=== PATIENT | male | born 1940 | race Caucasian/White ===

== ENCOUNTER → 2017-10-14 | Outpatient (CLI) | payer MEDICARE ==
--- NOTE | 2017-10-14 13:34 | MR ---
EXAMINATION TYPE: MR brain and iac wo con DATE OF EXAM: 10/14/2017 COMPARISON: NONE HISTORY: Dizziness and giddiness, Hit head around xmas symptoms getting worse CONTRAST: Performed utilizing 0 mL intravenous Gadavist gadolinium contrast. GFR is too low TECHNIQUE: Multiplanar, multiecho imaging on a 3.0 Yazmin magnet is performed through the brain. Atte ntion is paid to the internal auditory canals with thin section imaging. Postcontrast imaging is per formed through the internal auditory canals. FINDINGS:Craniovertebral junction is normal. The pituitary is normal. Diffusion-weighted imaging is performed. No suspicious hyperintensity is present to suggest an acute intracranial infarct or acute ischemic area. Signal within the brain has mild partially confluent white matter changes in the periventricular whit e matter. There is some subcortical white matter change in the right occipital lobe could be a prior subcortical infarct or microvascular ischemic change. Thin section imaging is performed through the internal auditory canals and cerebellar pontine angles. No cerebellar pontine angle masses are evident. The internal auditory canals appear normal without expansion or erosion. Minimal mucosal thickening is within the maxillary sinuses. Minimal mucosal thickenings within the mi d scattered ethmoid air cells. IMPRESSIONS: 1. Normal internal auditory canals. 2. Small intracanalicular schwannomas may not be visualized due to lack of intravenous contrast due t o the patient's renal function at this time. 3. Periventricular white matter ischemic changes. This more focal into the right occipital lobe.
== END | disposition home or self-care (01) ==
LOC: RADMRIMAIN 10:53
PROVIDERS: ATTEND Nurse Practitioner
DX: I67.82 Cerebral ischemia (principal); Z01.812 Encounter for preprocedural laboratory examination
CPT/HCPCS: 70551; 82565; 84520

== ENCOUNTER 2018-01-03 11:23 | Day surgery (SDC) | payer MEDICARE ==
[~2018-01-03 11:23] MED LIST: GENTAMICIN/PREDNISOL AC OPHTH OINT 3.5GM OPHTHALMIC ONE; LACTATED RINGERS 1,000 ML IV SCH; LIDOCAINE 1% 20 ML VIAL (10MG/ML) FOR IV START INTRADERMA PRN; Pre Op ABX Message 1 EACH MISC MISCELLANE ONE; TOBRA-DEXAMET 0.3-0.1% OPHTH DROPS 2.5 ML BTL OPHTHALMIC ONE; diphenhydrAMINE 50 MG/ML 1 ML VIAL IVP STA
[2018-01-03 12:45] VITALS: RESP 16; TEMP 98.1
[2018-01-03] MEDS: PHENYLEPHRINE 10% OPHTH DROPS 5 ML BTL OP ONE ×3 (12:51→13:07)
[2018-01-03] MEDS: CYCLOPENTOLATE 1% OPHTH SOLN 2 ML BTL OP ONE ×3 (12:54→13:09)
[2018-01-03] MEDS: FLURBIPROFEN 0.03% OPHTH DROPS 2.5 ML BTL OP ONE ×2 (13:13→13:15)
[2018-01-03 13:21] LABS: Glucose,Whole Blood 130 mg/dL (75-99)
[2018-01-03] MEDS ORDERED: PROPOFOL 10 MG/ML 20 ML VIAL IV ONE (13:30)
[2018-01-03] MEDS ORDERED: LIDOCAINE 1% INJ 10MG/ML (20 ML MDV) ONE (13:30)
[2018-01-03] MEDS ORDERED: EPINEPHrine (PF) 0.5 ML in BALANCED SALT IRRIG SOLN COMB2 500 ML IRRIGATION ONE (13:42)
[2018-01-03] MEDS ORDERED: BALANCED SALT IRRIG SOLN COMB2 15 ML IRRIG.SOLN INTRAOCULA ONE (13:44)
[2018-01-03] MEDS ORDERED: HYALURONATE SODIUM INTRAOCULAR 1 EACH SYRINGE (10MG/ML) INTRAOCULA ONE (13:44)
--- NOTE | 2018-01-03 14:12 | P.OP ---
Date of Procedure: 01/03/18 Procedure(s) Performed: PREOPERATIVE DIAGNOSIS: Cataract, right eye, Glaucoma, right eye. POSTOPERATIVE DIAGNOSIS: Cataract, right eye. Glaucoma, right eye. OPERATION: Phacoemulsification cataract, Lens Implant, I-stent placement right eye. DESCRIPTION OF PROCEDURE: The patient was taken to the preoperative holding area. Intravenous Propofol was given so as to bring about adequate sedation. The following mixture was given for local anesthesia: 5 mL of 2% lidocaine, 5 mL of 0.75% Marcaine, and 1 mL of Wydase. Approximately 4 mL was injected in the retrobulbar space of the surgical eye. Additional 1 mL was then directed to the temporal area of the surgical eye. This was performed to allow adequate neurological block of the facial muscles. The patient was revived and then taken into the operative room. The patient was prepped and draped in the usual sterile manner for the operative eye. A lid speculum was put into position. The conjunctiva was resected back from the limbus in the 12 o'clock position. Bleeding was controlled with electrocautery. A #69 blade was then used and a half-thickness scleral incision approximately 1-mm posterior to the limbus was made on bare sclera. This was shelved in the clear cornea using a crescent knife. Next a 15-degree blade was used to make a stab incision at the 3 o' clock position at the corneolimbal interface. Keratome blade was then used and the superior wound was extended into the anterior chamber. Viscoelastic was injected into the anterior chamber and to maintain its form. Using a hand held gonioprism, an I-stent was placed into the inferior trabecular meshwork. Next, a cystotome was used and a continuous anterior capsulotomy was made without difficulty. Hydrodissection using a blunt cannula and BSS was performed. Phaco probe was then employed and a groove extending from 12 to 6 o' clock in the lens was created. A Demarcus wand was used through the stab incision so as to perform a divide and conquer technique. Next an irrigation aspiration probe was utilized and any residual cortex was removed from the eye. Again, viscoelastic was injected into the anterior chamber. An Alconj posterior chamber lens implant was placed in the cartridge and injected into the anterior chamber without difficulty. The [employer] hook was utilized to spin the lens into position and this was again performed without any difficulty. The irrigation and aspiration probe was again employed and any residual viscoelastic was removed from the eye. Then BSS was injected into the limbal stab incision and the anterior chamber re-inflated. The conjunctiva was reapproximated using electrocautery. One drop of 0.25% Timoptic was placed over the corneal along with TobraDex ophthalmic ointment. Two sterile patches and a Muir eye shield were taped into position. The patient was transported to the recovery room in stable condition. Pathology: none sent Condition: stable Disposition: same day
[2018-01-03 14:28] LABS: Glucose,Whole Blood 119 mg/dL (75-99)
[2018-01-03 14:31] VITALS: BP 160/81; PULSE 61
[2018-01-03] MEDS ORDERED: TIMOLOL 0.5% OPHTH DROPS 5 ML BTL OP ONE (23:00)
[2018-01-03] MEDS ORDERED: BUPIVACAINE (PF) 0.75% 5 ML, HYALURONIDASE, HUMAN RECOMB 150 UNIT, LIDOCAINE 2% (PF) 10... MISCELLANE ONE ×3 (23:00)
== END 2018-01-03 14:41 | disposition home or self-care (01) ==
LOC: OR 11:23
PROVIDERS: ATTEND Ophthalmology
DX: E11.36 Type 2 diabetes mellitus with diabetic cataract (principal); H04.129 Dry eye syndrome of unspecified lacrimal gland; I10 Essential (primary) hypertension; Z79.84 Long term (current) use of oral hypoglycemic drugs; Z79.899 Other long term (current) drug therapy; E78.5 Hyperlipidemia, unspecified; Z85.46 Personal history of malignant neoplasm of prostate; K21.9 Gastro-esophageal reflux disease without esophagitis; Z79.82 Long term (current) use of aspirin; Z88.6 Allergy status to analgesic agent; Z88.8 Allergy status to other drugs, medicaments and biological substances
CPT/HCPCS: 66984; 66183; V2632; C1783; J3470; J1200; J2001 ×2; J0171; J2704

== ENCOUNTER 2018-02-07 07:29 | Day surgery (SDC) | payer MEDICARE ==
[2018-01-31 13:57] VITALS: BMI 30.7
[~2018-02-07 07:29] MED LIST changes: +BUPIVACAINE (PF) 0.75% 5 ML, HYALURONIDASE, HUMAN RECOMB 150 UNIT, LIDOCAINE 2% (PF) 10... MISCELLANE ONE; -LIDOCAINE 1% 20 ML VIAL (10MG/ML) FOR IV START INTRADERMA PRN; -Pre Op ABX Message 1 EACH MISC MISCELLANE ONE; +TIMOLOL 0.5% OPHTH DROPS 5 ML BTL OP ONE; -TOBRA-DEXAMET 0.3-0.1% OPHTH DROPS 2.5 ML BTL OPHTHALMIC ONE; -diphenhydrAMINE 50 MG/ML 1 ML VIAL IVP STA
[2018-02-07] MEDS ORDERED: diphenhydrAMINE 50 MG/ML 1 ML VIAL IVP STA (08:48)
[2018-02-07] MEDS: PHENYLEPHRINE 10% OPHTH DROPS 5 ML BTL OP ONE ×4 (08:55→09:21)
[2018-02-07] MEDS: CYCLOPENTOLATE 1% OPHTH SOLN 2 ML BTL OP ONE ×4 (08:58→09:21)
[2018-02-07] MEDS: FLURBIPROFEN 0.03% OPHTH DROPS 2.5 ML BTL OP SCH ×4 (09:01→09:21)
[2018-02-07 09:17] VITALS: TEMP 97.6
[2018-02-07 09:25] LABS: Glucose,Whole Blood 156 mg/dL (75-99)
[2018-02-07] MEDS ORDERED: PROPOFOL 10 MG/ML 20 ML VIAL IV ONE (09:38)
[2018-02-07] MEDS ORDERED: BALANCED SALT IRRIG SOLN COMB2 15 ML IRRIG.SOLN IRRIGATION ONE (09:50)
[2018-02-07] MEDS ORDERED: HYALURONATE SODIUM INTRAOCULAR 1 EACH SYRINGE (10MG/ML) INTRAOCULA ONE ×2 (09:50)
[2018-02-07] MEDS ORDERED: EPINEPHrine (PF) 0.5 ML in BALANCED SALT IRRIG SOLN COMB2 500 ML IRRIGATION ONE (09:52)
--- NOTE | 2018-02-07 10:16 | P.OP ---
Date of Procedure: 02/07/18 Procedure(s) Performed: PREOPERATIVE DIAGNOSIS: Cataract and Glaucoma, left eye. POSTOPERATIVE DIAGNOSIS: Cataract and Glaucoma, left eye. OPERATION: Phacoemulsification cataract, placement of iStent, left eye. DESCRIPTION OF PROCEDURE: The patient was taken to the preoperative holding area. Intravenous Propofol was given so as to bring about adequate sedation. The following mixture was given for local anesthesia: 5 mL of 2% lidocaine, 5 mL of 0.75% Marcaine, and 1 mL of Wydase. Approximately 4 mL was injected in the retrobulbar space of the surgical eye. Additional 1 mL was then directed to the temporal area of the surgical eye. This was performed to allow adequate neurological block of the facial muscles. The patient was revived and then taken into the operative room. The patient was prepped and draped in the usual sterile manner for the operative eye. A lid speculum was put into position. The conjunctiva was resected back from the limbus in the 12 o'clock position. Bleeding was controlled with electrocautery. A #69 blade was then used and a half-thickness scleral incision approximately 1-mm posterior to the limbus was made on bare sclera. This was shelved in the clear cornea using a crescent knife. Next a 15-degree blade was used to make a stab incision at the 3 o' clock position at the corneolimbal interface. Keratome blade was then used and the superior wound was extended into the anterior chamber. Viscoelastic was injected into the anterior chamber and to maintain its form. An iStent was placed in the inferior trabecular meshwork. Next, a cystotome was used and a continuous anterior capsulotomy was made without difficulty. Hydrodissection using a blunt cannula and BSS was performed. Phaco probe was then employed and a groove extending from 12 to 6 o'clock in the lens was created. A Demarcus wand was used through the stab incision so as to perform a divide and conquer technique. Next an irrigation aspiration probe was utilized and any residual cortex was removed from the eye. Again, viscoelastic was injected into the anterior chamber. An Primitivo posterior chamber lens implant was placed in the cartridge and injected into the anterior chamber without difficulty. The Sinskey hook was utilized to spin the lens into position and this was again performed without any difficulty. The irrigation and aspiration probe was again employed and any residual viscoelastic was removed from the eye. Then BSS was injected into the limbal stab incision and the anterior chamber re- inflated. The conjunctiva was reapproximated using electrocautery. One drop of 0.25% Timoptic was placed over the corneal along with TobraDex ophthalmic ointment. Two sterile patches and a Muir eye shield were taped into position. The patient was transported to the recovery room in stable condition. Pathology: none sent Condition: stable Disposition: same day
[2018-02-07 10:19] VITALS: BP 182/88; PULSE 60; RESP 18
[2018-02-07 10:28] LABS: Glucose,Whole Blood 138 mg/dL (75-99)
== END 2018-02-07 10:58 | disposition home or self-care (01) ==
LOC: OR 07:29
PROVIDERS: ATTEND Ophthalmology
DX: E11.36 Type 2 diabetes mellitus with diabetic cataract (principal); H40.1132 Primary open-angle glaucoma, bilateral, moderate stage; Z79.84 Long term (current) use of oral hypoglycemic drugs; H04.129 Dry eye syndrome of unspecified lacrimal gland; I10 Essential (primary) hypertension; E78.5 Hyperlipidemia, unspecified; Z87.442 Personal history of urinary calculi; K21.9 Gastro-esophageal reflux disease without esophagitis; Z79.82 Long term (current) use of aspirin; Z79.899 Other long term (current) drug therapy
CPT/HCPCS: 66984; 66183; V2632; C1783; J3470; J1200; J2001; J0171; J2704

== ENCOUNTER → 2018-06-10 | Outpatient (CLI) | payer MEDICARE ==
--- NOTE | 2018-06-12 09:32 | PE ---
Nuclear medicine PET/CT HISTORY: Solitary pulmonary nodule, initial Patient received 12 mCi F-18 FDG intravenously in delayed scanning was performed from skull base to t he mid thighs. An attenuation correction and localization CT was performed. Correlation CT abdomen pelvis 05/12/[address] 03/17/2016, most recent chest x-ray available is 03/23/20 16 Neck and chest: There is no evident cervical adenopathy. Calcifications along the pharyngeal soft tis sues compatible with chronic infection. Shotty mediastinal nodes are present, there is an aorticopulm onary window node measuring 12 mm in short axis. Coronary artery calcifications are present. No pleur al or pericardial effusion. No axillary or hilar adenopathy. Pulmonary nodule present in the right mi ddle lobe measures approximately 10 mm in greatest dimension. There is no associated hypermetabolic u ptake. Nodule is stable over two-year period. Abdomen pelvis: No suspicious hypermetabolic uptake. No evident retroperitoneal adenopathy or adrenal mass. Liver shows no lesion. Gallbladder, spleen, kidneys are within normal limits. Pancreas shows n o abnormality. Atheromatous change present within the aorta. Urinary bladder shows wall thickening. S treak artifact from patient's hip prosthesis could limit sensitivity. No evident pelvic adenopathy. Osseous structures: There are degenerative changes within the spine. Facet arthropathy noted at the l ower lumbar spine, there may be a component of spinal stenosis. Mild uptake within the shoulders is l ikely due to underlying arthropathy. Uptake in the greater trochanter on the right may be due to troc hanteric bursitis, is likely inflammatory change in the right hip possibly arthropathy change with as sociated uptake. IMPRESSION: Benign lung nodule.
== END | disposition home or self-care (01) ==
LOC: RADPETMAIN 08:25
PROVIDERS: ATTEND Family Medicine
DX: R91.1 Solitary pulmonary nodule (principal)
CPT/HCPCS: 78815; A9552

== ENCOUNTER → 2018-09-29 | Outpatient (CLI) | payer MEDICARE | END | disposition home or self-care (01) | LOC: RADCTMAIN 16:08 | PROVIDERS: ATTEND Internal Medicine Interventional Cardiology | DX: I65.29 Occlusion and stenosis of unspecified carotid artery (principal) | CPT/HCPCS: 82565; 84520 ==

== ENCOUNTER 2021-04-24 09:43 | Inpatient (IN) | payer MEDICARE ==
[2021-04-24] MEDS ORDERED: SODIUM CHLORIDE 0.9% 500 ML 500 ML IV ONE (09:58)
--- NOTE | 2021-04-24 09:59 | ED ---
General Adult HPI - General Stated complaint: stroke symptoms Source: patient, RN notes reviewed, old records reviewed Mode of arrival: ambulatory Limitations: no limitations - History of Present Illness Initial comments: 80-year-old male presenting for evaluation of left arm numbness and weakness. Symptoms began yesterday at noon. He is presenting today at approximately 9:45 AM. Patient is on aspirin. He states he had been doing some yard work and developed the numbness and weakness in his left arm. EMS reported stable vitals during transport. They state that there was no facial droop and speech was clear. No lower extremity symptoms. No chest pain or abdominal pain. No headache. - Related Data Home Medications Medication Instructions Recorded Confirmed Metoprolol Tartrate [Lopressor] 25 mg PO BID 03/17/16 04/24/21 sitaGLIPtin [Januvia] 50 mg PO DAILY 12/28/17 04/24/21 amLODIPine [Norvasc] 5 mg PO DAILY 01/31/18 04/24/21 Atorvastatin [Lipitor] 80 mg PO DAILY 04/24/21 04/24/21 Tamsulosin [Flomax] 0.4 mg PO DAILY 04/24/21 04/24/21 Allergies Allergy/AdvReac Type Severity Reaction Status Date / Time cortisone Allergy Anaphylaxis Verified 04/24/21 10:47 NSAIDS (Non-Steroidal Allergy Anaphylaxis Verified 04/24/21 10:47 Anti-Inflamma Review of Systems ROS Statement: Those systems with pertinent positive or pertinent negative responses have been documented in the HPI. ROS Other: All systems not noted in ROS Statement are negative. Past Medical History Past Medical History: Cancer, Diabetes Mellitus, GERD/Reflux, Hyperlipidemia, Hypertension, Osteoarthritis (OA), Prostate Disorder Additional Past Medical History / Comment(s): NIDDM, prostate cancer with prostatectomy, generalized arthritis LOSS OF VISON RT EYE, kidney stones, Cataract left eye. History of Any Multi-Drug Resistant Organisms: None Reported Past Surgical History: Joint Replacement, Prostate Surgery Additional Past Surgical History / Comment(s): Suprapubic prostatectomy with cystoscopy, total L hip arthroplasty, colonoscopy., Right Cataract 01/03/18 Past Anesthesia/Blood Transfusion Reactions: No Reported Reaction Past Psychological History: No Psychological Hx Reported Smoking Status: Never smoker Past Alcohol Use History: Rare Past Drug Use History: None Reported - Past Family History Father Family Medical History: Prostate Disorder Additional Family Medical History / Comment(s): Father at age 86 yrs. Mother Family Medical History: Cancer Additional Family Medical History / Comment(s): Mother of uterine cancer at the age of 52 yrs. General Exam Limitations: no limitations General appearance: alert, in no apparent distress Head exam: Present: atraumatic, normocephalic Eye exam: Present: normal appearance, PERRL Neck exam: Present: normal inspection. Absent: tenderness, meningismus Respiratory exam: Present: normal lung sounds bilaterally. Absent: respiratory distress, wheezes Cardiovascular Exam: Present: regular rate, normal rhythm GI/Abdominal exam: Present: soft. Absent: distended, tenderness, guarding, rebound Extremities exam: Present: normal capillary refill, other (Left hand contracture) Neurological exam: Present: alert, oriented X3, CN II-XII intact, motor sensory deficit (Left arm drift) Psychiatric exam: Present: normal affect, normal mood Skin exam: Present: warm, dry, intact. Absent: cyanosis, diaphoretic Course Vital Signs 04/24/21 04/24/21 04/24/21 09:47 10:30 10:45 Temperature 97.4 F L Pulse Rate 79 74 80 Respiratory 18 18 18 Rate Blood Pressure 143/74 133/78 147/87 O2 Sat by Pulse 98 95 97 Oximetry EKG Findings - EKG Comments: EKG Findings:: Sinus rhythm with PAC, PVC rate of 78, KS interval 192, QRS duration 86, QTC 428, no ST segment elevation. Medical Decision Making - Medical Decision Making 80-year-old male with history concerning for acute CVA, left-sided weakness whic h began yesterday at noon. Patient not a TPA candidate. I did discuss case with Dr. Valentin bradford for stroke neurology at 10 AM. He was able to review imaging. Plain CT did show possible subacute hypodensity in the right frontal region. CT angiography have concern for a dissection which may be chronic in the carotid artery. Dr. Hanson did recommend 300 of Plavix to be administered. I discussed case with Dr. Crispin bradford for neurology who recommends stat MRI this has been ordered. Patient is hemodynamically stable, alert. Case discussed with Dr. De La Garza who will admit. - Lab Data Result diagrams: 04/24/21 10:03 04/24/21 10:03 Lab Results 04/24/21 04/24/21 04/24/21 Range/Units 10:02 10:03 10:03 WBC 8.4 (3.8-10.6) k/uL RBC 4.64 (4.30-5.90) m/uL Hgb 14.6 (13.0-17.5) gm/dL Hct 44.0 (39.0-53.0) % MCV 94.8 (80.0-100.0) fL MCH 31.5 (25.0-35.0) pg MCHC 33.2 (31.0-37.0) g/dL RDW 13.6 (11.5-15.5) % Plt Count 218 (150-450) k/uL MPV 8.5 Neutrophils % 72 % Lymphocytes % 15 % Monocytes % 7 % Eosinophils % 5 % Basophils % 1 % Neutrophils # 6.1 (1.3-7.7) k/uL Lymphocytes # 1.2 (1.0-4.8) k/uL Monocytes # 0.6 (0-1.0) k/uL Eosinophils # 0.4 (0-0.7) k/uL Basophils # 0.1 (0-0.2) k/uL PT 10.5 (9.0-12.0) sec INR 1.0 (<1.2) APTT 22.2 (22.0-30.0) sec Sodium (137-145) mmol/L Potassium (3.5-5.1) mmol/L Chloride (98-107) mmol/L Carbon Dioxide (22-30) mmol/L Anion Gap mmol/L BUN (9-20) mg/dL Creatinine (0.66-1.25) mg/dL Est GFR (CKD-EPI)AfAm (>60 ml/min/1.73 sqM) Est GFR (CKD-EPI)NonAf (>60 ml/min/1.73 sqM) Glucose (74-99) mg/dL POC Glucose (mg/dL) 142 H (75-99) mg/dL POC Glu [employer]earoom Host/Hostess ID Venus Garcia Calcium (8.4-10.2) mg/dL Total Bilirubin (0.2-1.3) mg/dL AST (17-59) U/L ALT (4-49) U/L Alkaline Phosphatase (38-126) U/L Troponin I (0.000-0.034) ng/mL Total Protein (6.3-8.2) g/dL Albumin (3.5-5.0) g/dL 04/24/21 04/24/21 Range/Units 10:03 10:03 WBC (3.8-10.6) k/uL RBC (4.30-5.90) m/uL Hgb (13.0-17.5) gm/dL Hct (39.0-53.0) % MCV (80.0-100.0) fL MCH (25.0-35.0) pg MCHC (31.0-37.0) g/dL RDW (11.5-15.5) % Plt Count (150-450) k/uL MPV Neutrophils % % Lymphocytes % % Monocytes % % Eosinophils % % Basophils % % Neutrophils # (1.3-7.7) k/uL Lymphocytes # (1.0-4.8) k/uL Monocytes # (0-1.0) k/uL Eosinophils # (0-0.7) k/uL Basophils # (0-0.2) k/uL PT (9.0-12.0) sec INR (<1.2) APTT (22.0-30.0) sec Sodium 136 L (137-145) mmol/L Potassium 4.9 (3.5-5.1) mmol/L Chloride 107 (98-107) mmol/L Carbon Dioxide 18 L (22-30) mmol/L Anion Gap 11 mmol/L BUN 37 H (9-20) mg/dL Creatinine 1.87 H (0.66-1.25) mg/dL Est GFR (CKD-EPI)AfAm 38 (>60 ml/min/1.73 sqM) Est GFR (CKD-EPI)NonAf 33 (>60 ml/min/1.73 sqM) Glucose 160 H (74-99) mg/dL POC Glucose (mg/dL) (75-99) mg/dL POC Glu Tearoom Host/Hostess ID Calcium 9.4 (8.4-10.2) mg/dL Total Bilirubin 0.8 (0.2-1.3) mg/dL AST 31 (17-59) U/L ALT 27 (4-49) U/L Alkaline Phosphatase 125 (38-126) U/L Troponin I <0.012 (0.000-0.034) ng/mL Total Protein 7.1 (6.3-8.2) g/dL Albumin 4.0 (3.5-5.0) g/dL Disposition Clinical Impression: Cerebrovascular accident (CVA) Disposition: ADMITTED IP TO THIS [facility] Condition: Stable Is patient prescribed a controlled substance at d/c from ED?: No Referrals: Jessica Griffin DO [Primary Care Provider] - 1-2 days Decision to Admit Reason: Admit from EC Decision Date: 04/24/21 Decision Time: 11:31
[2021-04-24 10:06] LABS: Glucose,Whole Blood 142 mg/dL (75-99)
[2021-04-24 10:30] LABS: Basophils # (A) 0.1 k/uL (0-0.2); Basophils % (A) 1 %; Eosinophils # (A) 0.4 k/uL (0-0.7); Eosinophils % (A) 5 %; HGB 14.6 gm/dL (13.0-17.5); Lymphocytes # (A) 1.2 k/uL (1.0-4.8); Lymphocytes % (A) 15 %; MCH 31.5 pg (25.0-35.0); MCHC 33.2 g/dL (31.0-37.0); MCV 94.8 fL (80.0-100.0); Mean Platelet Volume 8.5; Monocytes # (A) 0.6 k/uL (0-1.0); Monocytes % (A) 7 %; Neutrophils # (A) 6.1 k/uL (1.3-7.7); Neutrophils % (A) 72 %; Platelet Count 218 k/uL (150-450); RBC 4.64 m/uL (4.30-5.90); RDW 13.6 % (11.5-15.5); WBC 8.4 k/uL (3.8-10.6)
--- NOTE | 2021-04-24 10:39 | CT ---
EXAMINATION TYPE: CT brain wo con DATE OF EXAM: 04/24/2021 COMPARISON: MRI 10/14/2017 HISTORY: 80-year-old male male neurologic deficit, acute, stroke suspected, Left arm drift. TECHNIQUE: Examination was done in axial plane without intravenous contrast. Coronal and sagittal r econstructions performed. CT DLP: 1077.8 mGycm Automated exposure control for dose reduction was used. FINDINGS: There is cortical and subcortical hypodensity right frontoparietal junction that is new from 10/14/2017 . No significant sulcal effacement. There is no evidence of acute intracranial hemorrhage, mass, mass-effect, or extra-axial fluid colle ction. There is no effacement of cerebral sulci or basal subarachnoid cisterns. There is no hydroce phalus. There is no midline shift. Mild generalized supratentorial volume loss. Moderate patchy white matter hypodensities both cerebral hemispheres. Moderate mucosal thickening ethmoid air cells and maxillary sinuses and mastoid air cells well pneuma tized. Orbits and globes are intact. IMPRESSION: 1. Cortical and subcortical hypodensity at the right frontoparietal junction, new from 10/14/2017. No s ignificant sulcal effacement or midline shift. No acute intracranial hemorrhage. Correlate for possib le subacute ischemia here. 2. Mild generalized atrophy and moderate burden of chronic small vessel ischemic disease. 3. Moderate chronic ethmoid and maxillary sinus disease.
--- NOTE | 2021-04-24 10:40 | XR ---
EXAMINATION TYPE: XR chest 2V DATE OF EXAM: 04/24/2021 COMPARISON: Chest x-ray March 23, 2016 HISTORY: Altered mental status and weakness. TECHNIQUE: Frontal and lateral views of the chest are obtained. FINDINGS: There is mild chronic parenchymal change without suspicious new focal air space opacity, p leural effusion, or pneumothorax seen. Diminish inspiration on current study. The cardiac silhouette size is slightly more prominent. Degenerative change bilateral shoulders. IMPRESSION: Diminished inspiration. No new suspicious focal infiltrate.
[2021-04-24 10:41] LABS: Partial Thromboplastin Time 22.2 sec (22.0-30.0); Prothrombin Time 10.5 sec (9.0-12.0)
[2021-04-24 10:51] LABS: Calcium 9.4 mg/dL (8.4-10.2); Total Bilirubin 0.8 mg/dL (0.2-1.3); Total Protein 7.1 g/dL (6.3-8.2)
[2021-04-24 10:52] LABS: Potassium 4.9 mmol/L (3.5-5.1)
--- NOTE | 2021-04-24 10:59 | CT ---
EXAMINATION TYPE: CT angio head neck DATE OF EXAM: 04/24/2021 COMPARISON: CT brain same day HISTORY: 80-year-old male acute neurologic deficit, Left arm drift. TECHNIQUE: Contiguous axial scanning of the head and neck performed with IV Contrast, patient injecte d with 65 mL of Isovue 370. Coronal/sagittal MIP reconstructions performed. 3-D reconstructions gener ated on a dedicated independent workstation. CT DLP: 416.2 mGycm Automated exposure control for dose reduction was used. 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 Flap is slightly thick suggesting a more chronic finding. There is occlusion of th e left vertebral artery intermittent faint reconstitution is noted throughout the V2 segment. More ad equate reconstitution at the V3 and V4 segments though the right vertebral artery is dominant. Moderate atherosclerotic calcification narrowing the origin of the right vertebral artery. Remainder of the right vertebral artery remains patent. 1.4 cm hypodense nodule left lobe of thyroid gland. Further evaluation with dedicated thyroid ultraso und recommended. Mild to moderate atherosclerotic arch calcifications with conventional arch vessel branching anatomy. The right common carotid artery is patent. Moderate atherosclerotic changes at the right carotid bifurcation. Mild narrowing at the origin of the right ICA secondary to atherosclerotic calcification by less than 20%. Severe plaque in the proximal right ICA resulting in a severe, 80-90% stenosis of the proximal right ICA by NASCET criteria spanning a length of nearly 1 cm. Left common carotid artery is patent. Moderate atherosclerotic plaque and calcification at the proximal left ICA. There is narrowing modera te, just under 70% proximal left ICA stenosis by NASCET criteria. HEAD: Scattered moderate prostatic calcifications throughout the carotid siphons with segmental mild athero sclerotic narrowing bilateral internal carotid arteries. No significant stenosis seen. There is hypoplastic A1 segment right anterior cerebral artery. Otherwise, the anterior circulation i s patent. No aneurysmal change is seen. Dural venous sinuses are patent. IMPRESSION: NECK: 1. 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 THE DISSECTION FLAP APPEARS SLIGHTLY THICK SUGGEST ING A MORE CHRONIC FINDING. 2. MODERATE ATHEROSCLEROTIC NARROWING AT THE ORIGIN OF THE DOMINANT RIGHT VERTEBRAL ARTERY WHICH OTHE RWISE REMAINS PATENT. 3. SEVERE, 80-90% PROXIMAL RIGHT ICA STENOSIS SPANNING A LENGTH OF 1 CM. 4. MODERATE ATHEROSCLEROTIC CHANGE AT THE LEFT BIFURCATION WITH A MODERATE, JUST UNDER 70% PROXIMAL L EFT ICA STENOSIS. 5. A 1.4 CM LEFT THYROID LOBE NODULE CAN BE FURTHER EVALUATED WITH A NONEMERGENT DEDICATED THYROID UL TRASOUND. HEAD: 6. MILD SEGMENTAL ATHEROSCLEROTIC NARROWING THROUGHOUT THE BILATERAL CAROTID SIPHONS. 7. 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 8. NO LARGE VESSEL INTRACRANIAL ARTERIAL OCCLUSION, SIGNIFICANT STENOSIS, OR ANEURYSMAL CHANGE IS SEE N.
[2021-04-24] MEDS ORDERED: CLOPIDOGREL 75 MG TAB PO STA (11:12)
[2021-04-24] MEDS ORDERED: ATORVASTATIN 80 MG TAB PO STA (12:26)
[2021-04-24] MEDS: SODIUM CHLORIDE 0.9% 1,000 ML IV SCH (12:34)
--- NOTE | 2021-04-24 13:35 | P.CNNES ---
History of Present Illness Consult date: 04/24/21 Requesting physician: Wilbur Bernard Reason for Consult: CVA and carotid dissection History of Present Illness: This is a 80-year-old gentleman with medical history of diabetes mellitus (for at least 10-12 years), hypertension, hyperlipidemia, who presented to the emergency department on 04/24/2021 for left arm weakness and numbness that started two days ago. Patient presented at around 9:43 AM today to our ED. He is accompanied by his daughter (Melissa) who is at bedside. Due to that about 2 days ago he was doing gardening and all of a sudden he noted his a left upper extremity mostly to hand the forearm was weak as well as felt numbness. He denies any other associated symptoms with that that. Denies any difficulty swallowing, difficulty getting his words out, denied any weakness in the legs. He stated that he has a mild headache is chronic and that's in the back of the head and stated it was mild and denies any radiation denied any photophobia photophobia and nausea vomiting and he said that he has this headache on and off and that's been going on for a while but denies any headache currently. He denies as seeking any medical attention the with the weakness of the left upper extremity since he thought is given get better. He denies any history of stroke or TIA. He denies any trauma to the neck had. He feels about the same today compared to 2 days ago. He denies of tobacco use, alcohol use or illicit drug use. Patient home medication consists of amlodipine 5 mg, Flomax, metoprolol 25 mg tablet twice a day, Lipitor 80 mg daily and Januvia. Of note per his granddaughter was at bedside she stated that the the patient the has intermittent the slurring the speech that's chronic and nothing new. She stated that he uses a cane and a walker for a long period of time. He also has a right hip pain as well as right knee pain that needs replacement and is pending to be done. Some other workup in the hospital consisted of: Initial vital signs is blood pressure of 143/74, heart rate of 79, RR of 18, temperature of 97.4 Fahrenheit oral and pulse ox of 98% room air. CT of the brain is reported as cortical and subcortical hypodensity at the right frontal parietal junction, new from 10/14/2017. No significant sulcal effacement or midline shift. No acute intracranial hemorrhage. Correlate for possible subacute ischemia. Mild generalized atrophy and moderate burden of chronic small vessel ischemic disease. Moderate chronic ethmoid and maxillary sinus disease. 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 There is reconstitution of the nondominant left vertebral artery at the V3 and V4 segment. The dissection flap appears slightly thick suggesting a more chronic finding. Moderate aphthous carotid narrowing at the origin of the dominant right vertebral artery with otherwise remained patent. Severe 80-90% proximal right ICA stenosis sparing a length of 1 cm. Moderate after sclerotic change at the left bifurcation with a moderate, just under 70% proximal left ICA stenosis. It 1.4 cm left thyroid the lobe nodule can be further evaluated with a nonemergent dedicated thyroid ultrasound. CT angiography of the head is reported as mild segmental aphthous carotid narrowing throughout the bilateral carotid siphons. Reconstruction of the V3 and V4 segment of the nondominant left vertebral artery. No large vessel intracranial arterial occlusion. Significant stenosis or aneurysm changes seen. CBC with differential is unremarkable. Chemistry panel is the sodium is slightly low of 136, creatinine is 1.87 regina vated and a glucose POC is 142 which is slightly elevated otherwise the rest of History panel is unremarkable. Coagulation study: PT of 10.5, INR 1.0, PTT of 22.2. No IV tpa since outside window. The patient was loaded with Plavix 300 mg once per the stroke attending (Dr. Alcocer) and stated no intervention from his side and does not need to be transfered out per ED team. Review of Systems Review of system: The 12 point system was reviewed and apparent positive and negative per HPI. Past Medical History Past Medical History: Cancer, Diabetes Mellitus, GERD/Reflux, Hyperlipidemia, Hypertension, Osteoarthritis (OA), Prostate Disorder Additional Past Medical History / Comment(s): NIDDM, prostate cancer with prostatectomy, generalized arthritis LOSS OF VISON RT EYE, kidney stones, Cataract left eye. History of Any Multi-Drug Resistant Organisms: None Reported Past Surgical History: Joint Replacement, Prostate Surgery Additional Past Surgical History / Comment(s): Suprapubic prostatectomy with cystoscopy, total L hip arthroplasty, colonoscopy., Right Cataract 01/03/18 Past Anesthesia/Blood Transfusion Reactions: No Reported Reaction Past Psychological History: No Psychological Hx Reported Smoking Status: Never smoker Past Alcohol Use History: Rare Past Drug Use History: None Reported - Past Family History Father Family Medical History: Prostate Disorder Additional Family Medical History / Comment(s): Father at age 86 yrs. Mother Family Medical History: Cancer Additional Family Medical History / Comment(s): Mother of uterine cancer at the age of 52 yrs. Medications and Allergies Home Medications Medication Instructions Recorded Confirmed Type Metoprolol Tartrate [Lopressor] 25 mg PO BID 03/17/16 04/24/21 History sitaGLIPtin [Januvia] 50 mg PO DAILY 12/28/17 04/24/21 History amLODIPine [Norvasc] 5 mg PO DAILY 01/31/18 04/24/21 History Atorvastatin [Lipitor] 80 mg PO DAILY 04/24/21 04/24/21 History Tamsulosin [Flomax] 0.4 mg PO DAILY 04/24/21 04/24/21 History Allergies Allergy/AdvReac Type Severity Reaction Status Date / Time cortisone Allergy Anaphylaxis Verified 04/24/21 10:47 NSAIDS (Non-Steroidal Allergy Anaphylaxis Verified 04/24/21 10:47 Anti-Inflamma Physical Examination - Vital Signs Vital Signs: Vital Signs Temp Pulse Resp BP Pulse Ox 04/24/21 10:45 80 18 147/87 97 04/24/21 10:30 74 18 133/78 95 04/24/21 09:47 97.4 F L 79 18 143/74 98 Intake and Output 04/23/21 04/24/21 04/24/21 22:59 06:59 14:59 Other: Weight 81.647 kg GENERAL: The patient is lying in bed and is not in acute distress. CHEST: The heart rate is regular rate rhythm. No murmurs to auscultation. No carotid bruit bilaterally. LUNG: Clear to auscultation bilaterally no wheezing noted throughout. Not labored breathing. ABDOMEN/GI: Bowel sounds present in all 4 quadrants. No tenderness to palpation throughout. NEUROLOGICAL: Higher mental function: The patient is awake, alert, oriented to self, place and stated the month is April but could not tell me the year. Patient is able to name objects appropriately (pen, watch, glasses). Patient is following simple commands. No aphasia. He has sensory neglect on bilateral stimulation but not visual. Cranial nerves: The pupils are round, equal and reactive to light and accommodation. Visual kumar are full to confrontation throughout. Extraocular movement is intact no nystagmus is noted. Facial sensation is normal to touch throughout. The facial strength is mild left nasolabial flattening. Hearing is severely decreased bilaterally to hand rub. Tongue is midline and moved [id number] without any difficulty. Mild dysarthria is noted (chronic per grand-daughter). Shoulder shrug is normal bilaterally. Motor: Gait is deferred. The strength is left upper extremity is 4. The right lower extremity is 3-4 (limited because of pain and that is chronic). Otherwise 5 over 5 throughout. Normal tone and bulk. Cerebellum: Hard time doing finger to nose on the left because of weakness while normal on the right. Sensation: Sensation is hard to assess because of cooperation but has sensory neglect on stimulatenous stimulation. Reflexes (right/left): 1+ throughout. Plantars is upgoing over the right and mute over the left. Results - Laboratory Findings CBC and BMP: 04/24/21 10:03 04/24/21 10:03 Abnormal Lab Findings: Abnormal Labs 04/24/21 04/24/21 10:02 10:03 Sodium 136 L Carbon Dioxide 18 L BUN 37 H Creatinine 1.87 H Glucose 160 H POC Glucose (mg/dL) 142 H Assessment and Plan Assessment: * Acute left arm weakness and numbness (started on 04/22/2021) Likely due to subacute ischemic stroke. On CT of the head it is reported the patient has cortical/subcortical hypodensity in the right frontal parietal region. 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 * Severe proximal RIght ICA stenosis (80-90%) * Moderate Left ICA stenosis (70%) * Diabetes mellitus * History of hypertension * History of hyperlipidemia Plan: * MRI the brain without is ordered by ED team is pending * I consulted vascular surgery stat. * I ordered that 2-D echo, hemoglobin A1c, TSH. Carotid duplex is ordered by vascular team. Lipid panel is ordered by the ED team. * The patient was loaded with Plavix 300 mg once per the stroke attending (Dr. Alcocer) and stated no intervention from his side and does not need to be transfered out per ED team. Started the patient on aspirin 325mg and Plavix 75mg daily. I loaded the patient with Lipitor 80 mg once and started the patient on Lipitor 80 mg daily at bedtime for secondary stroke prophylaxis * Neurochecks Q4 hours. * On cardiac monitoring * PT, OT and SPORTS INSTRUCTOR are consulted * We'll defer the rest of the medical management to the primary team. The plan is discussed with the patient and his grand-daughter (Melissa) who is at bedside. Thank you for the consultation. Jay Roa M.D. Neuro-hospitalist Time with Patient: Greater than 30
--- NOTE | 2021-04-24 14:00 | US ---
EXAMINATION TYPE: US carotid duplex BILAT DATE OF EXAM: 04/24/2021 COMPARISON: CTA neck earlier today CLINICAL HISTORY: left upper extremity weakness, CVA. EXAM MEASUREMENTS: RIGHT: Peak Systolic Velocity (PSV) cm/sec ----- Right CCA: 46.2 ----- Right ICA: 629.8 ----- Right ECA: 102.1 ICA/CCA ratio: 13.6 RIGHT: End Diastole cm/sec ----- Right CCA: 6.0 ----- Right ICA: 254.3 ----- Right ECA: 10.2 LEFT: Peak Systolic Velocity (PSV) cm/sec ----- Left CCA: 54.9 ----- Left ICA: 99.5 ----- Left ECA: 86.6 ICA/CCA ratio: 1.8 LEFT: End Diastole cm/sec ----- Left CCA: 13.9 ----- Left ICA: 30.9 ----- Left ECA: 0.0 VERTEBRALS (direction of flow): Right Vertebral: Antegrade Left Vertebral: Retrograde Rhythm: Arrhythmia Severe plaque on the right is confirmed causing significant stenosis correlates with same day CTA nec k study. More mild plaque on the left correlates with same day CTA study. Arrhythmia noted during markos l-time scanning per technologist. IMPRESSION: Confirmation of significant stenosis greater than 70% proximal right internal carotid ar rosangela which correlates with same day CTA neck study. NASCET criteria was used in interpretation of this exam? Criteria for Assigning % of Stenosis / Diameter reduction (Estimation based on the indirect measurements of the internal carotid artery velocities (ICA PSV). 1. Normal (no stenosis)=ICA PSV < 125 cm/s: ratio < 2.0: ICA EDV<40 cm/s. 2. Less than 50% stenosis=ICA PSV < 125 cm/s: ratio < 2.0: ICA EDV<40 cm/s. 3. 50 to 69% stenosis=ICA PSV of 125 to 230 cm/s: ration 2.0 ? 4.0: ICA EDV 40-100 cm/s. 4. Greater than 70% stenosis to near occlusion= ICA PSV > 230 cm/s: ratio > 4.0: ICA EDV > 100 cm/s. 5. Near occlusion= ICA PSV velocities may be low or undetectable: variable ratio and ICA EDV. 6. Total occlusion=unable to detect flow.
--- NOTE | 2021-04-24 14:44 | P.GSCN ---
History of Present Illness Consult date: 04/24/21 Reason for Consult: Carotid stenosis, carotid dissection Requesting physician: Jay Roa History of present illness: As a pleasant 80-year-old male with a past medical history of diabetes mellitus, hypertension, hyperlipidemia, coronary artery disease who presented to the emergency department today for left upper extremity weakness and numbness that started 2 days ago. Patient states 2 days ago he was doing some gardening and he suddenly noted some left upper extremity weakness mostly in his hand with his grass along with numbness. He states he thought it was related to heat and possible sun poisoning. He denied any other deficits such as weakness in his lower extremities or right upper extremity weakness he denied any visual changes, difficulty with speech, impaired thought process or difficulty swallo wing. Patient states he does get mild headaches that he states are chronic in the back of his head/neck and stated he had a mild headache this morning however has resolved. Patient also states he had a fall yesterday as he was trying to get up out of his chair and using his left arm to support him it was weak and gave out and therefore he did have a fall and cause some bruising. Patient does state he needs a right hip and knee replacement so he does have some decreased range of motion with the right lower extremity and uses cane and walker to assist with ambulation. He denies any history of stroke or TIA. He denies any previous history of tobacco use, alcohol use or illicit drug use. He has had some previous workup done by Dr. Escalante and had a carotid ultrasound in 2016 showing elevated velocity and right ICA stenosis 50-69%, moderate plaque. The patient states he was supposed to undergo an MRI for further evaluation but due to his kidney function it was canceled. He had had no further workup. Today he states he still having left upper extremity weakness especially with his grasp, he denies any other focal deficits. He is alert and oriented 3. He denies any chest pain, shortness of breath, fever, abdominal pain, nausea, or vomiting. He denies any current headache. CT of the brain is reported as cortical and subcortical hypodensity at the right frontal parietal junction, new from 10/14/2017. No significant sulcal effacement or midline shift. No acute intracranial hemorrhage. Correlate for possible subacute ischemia. Mild generalized atrophy and moderate burden of chronic small vessel ischemic disease. Moderate chronic ethmoid and maxillary sinus disease. 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 There is reconstitution of the nondominant left vertebral artery at the V3 and V4 segment. The dissection flap appears slightly thick suggesting a more chronic finding. Moderate aphthous carotid narrowing at the origin of the dominant right vertebral artery with otherwise remained patent. Severe 80-90% proximal right ICA stenosis sparing a length of 1 cm. Moderate after sclerotic change at the left bifurcation with a moderate, just under 70% proximal left ICA stenosis. It 1.4 cm left thyroid the lobe nodule can be further evaluated with a nonemergent dedicated thyroid ultrasound. CT angiography of the head is reported as mild segmental aphthous carotid narrowing throughout the bilateral carotid siphons. Reconstruction of the V3 and V4 segment of the nondominant left vertebral artery. No large vessel intracranial arterial occlusion. Significant stenosis or aneurysm changes seen. Review of Systems A 14 point review of systems was completed, all pertinent positives and negatives as stated in the HPI. Past Medical History Past Medical History: Cancer, Diabetes Mellitus, GERD/Reflux, Hyperlipidemia, Hypertension, Osteoarthritis (OA), Prostate Disorder Additional Past Medical History / Comment(s): NIDDM, prostate cancer with prostatectomy, generalized arthritis LOSS OF VISON RT EYE, kidney stones, Cataract left eye. History of Any Multi-Drug Resistant Organisms: None Reported Past Surgical History: Joint Replacement, Prostate Surgery Additional Past Surgical History / Comment(s): Suprapubic prostatectomy with cystoscopy, total L hip arthroplasty, colonoscopy., Right Cataract 01/03/18 Past Anesthesia/Blood Transfusion Reactions: No Reported Reaction Past Psychological History: No Psychological Hx Reported Smoking Status: Never smoker Past Alcohol Use History: Rare Past Drug Use History: None Reported - Past Family History Father Family Medical History: Prostate Disorder Additional Family Medical History / Comment(s): Father at age 86 yrs. Mother Family Medical History: Cancer Additional Family Medical History / Comment(s): Mother of uterine cancer at the age of 52 yrs. Medications and Allergies Home Medications Medication Instructions Recorded Confirmed Type Metoprolol Tartrate [Lopressor] 25 mg PO BID 03/17/16 04/24/21 History sitaGLIPtin [Januvia] 50 mg PO DAILY 12/28/17 04/24/21 History amLODIPine [Norvasc] 5 mg PO DAILY 01/31/18 04/24/21 History Atorvastatin [Lipitor] 80 mg PO DAILY 04/24/21 04/24/21 History Tamsulosin [Flomax] 0.4 mg PO DAILY 04/24/21 04/24/21 History Allergies Allergy/AdvReac Type Severity Reaction Status Date / Time cortisone Allergy Anaphylaxis Verified 04/24/21 10:47 NSAIDS (Non-Steroidal Allergy Anaphylaxis Verified 04/24/21 10:47 Anti-Inflamma Surgical - Exam Vital Signs Temp Pulse Resp BP Pulse Ox 97.4 F L 79 18 143/74 98 04/24/21 09:47 04/24/21 09:47 04/24/21 09:47 04/24/21 09:47 04/24/21 09:47 General appearance: The patient is alert, oriented, appears in no acute distress. HET: Head is normocephalic and atraumatic. Pupils are equal and reactive. Neck: Supple without lymphadenopathy. Trachea midline. No audible bruit. Heart: S1 S2. Regular rate and rhythm. Lungs: Clear to auscultation.. Abdomen: Soft, nontender, nondistended. Skin: Left upper extremity with bruising. Extremities: Normal skin color and turgor. No cyanosis, rash, ulceration, clubbing, or edema. Palpable bilateral radial and pedal pulses. Neurological: The patient is alert and oriented 3. He is able to state the month and year, place, and name. He is able to follow commands and answers questions appropriately. His speech is fluent with a slight slur, however granddaughter is at the bedside and states this is normal speech for him. He has good tone. Left upper extremity weakness, strength 4/5. Decreased grasp. Has some limited right lower extremity strength due to hip and knee pain. He has slight left facial asymmetry. Results - Labs 04/24/21 10:03 04/24/21 10:03 Abnormal Lab Results - Last 24 Hours (Table) 04/24/21 04/24/21 Range/Units 10:02 10:03 Sodium 136 L (137-145) mmol/L Carbon Dioxide 18 L (22-30) mmol/L BUN 37 H (9-20) mg/dL Creatinine 1.87 H (0.66-1.25) mg/dL Glucose 160 H (74-99) mg/dL POC Glucose (mg/dL) 142 H (75-99) mg/dL Diabetes panel 04/24/21 Range/Units 10:03 Sodium 136 L (137-145) mmol/L Potassium 4.9 (3.5-5.1) mmol/L Chloride 107 (98-107) mmol/L Carbon Dioxide 18 L (22-30) mmol/L BUN 37 H (9-20) mg/dL Creatinine 1.87 H (0.66-1.25) mg/dL Glucose 160 H (74-99) mg/dL Calcium 9.4 (8.4-10.2) mg/dL AST 31 (17-59) U/L ALT 27 (4-49) U/L Alkaline Phosphatase 125 (38-126) U/L Total Protein 7.1 (6.3-8.2) g/dL Albumin 4.0 (3.5-5.0) g/dL Calcium panel 04/24/21 Range/Units 10:03 Calcium 9.4 (8.4-10.2) mg/dL Albumin 4.0 (3.5-5.0) g/dL Pituitary panel 04/24/21 Range/Units 10:03 Sodium 136 L (137-145) mmol/L Potassium 4.9 (3.5-5.1) mmol/L Chloride 107 (98-107) mmol/L Carbon Dioxide 18 L (22-30) mmol/L BUN 37 H (9-20) mg/dL Creatinine 1.87 H (0.66-1.25) mg/dL Glucose 160 H (74-99) mg/dL Calcium 9.4 (8.4-10.2) mg/dL Adrenal panel 04/24/21 Range/Units 10:03 Sodium 136 L (137-145) mmol/L Potassium 4.9 (3.5-5.1) mmol/L Chloride 107 (98-107) mmol/L Carbon Dioxide 18 L (22-30) mmol/L BUN 37 H (9-20) mg/dL Creatinine 1.87 H (0.66-1.25) mg/dL Glucose 160 H (74-99) mg/dL Calcium 9.4 (8.4-10.2) mg/dL Total Bilirubin 0.8 (0.2-1.3) mg/dL AST 31 (17-59) U/L ALT 27 (4-49) U/L Alkaline Phosphatase 125 (38-126) U/L Total Protein 7.1 (6.3-8.2) g/dL Albumin 4.0 (3.5-5.0) g/dL - Imaging Comments: See HPI for details Carotid duplex: Right ICA PSV 629.8, ICA/CCA ratio 13.6, left ICA PSV 99.5, ICA/CCA ratio 1.8. Impression states confirmation of significant stenosis greater than 70% proximal right internal carotid artery which correlates with same day CTA neck study. Assessment and Plan Assessment: 1. Symptomatic severe right proximal ICA stenosis, reported 80-90% on CTA neck, greater than 70% per carotid duplex 2. Left upper extremity weakness 3. Moderate left ICA stenosis reported 70% on CTA him a less than 50% per carotid duplex 4. History of coronary artery disease 5. Diabetes mellitus 6. History of hypertension 7. History of hyperlipidemia Plan: 1. Carotid ultrasound ordered 2. CTA head and neck, carotid ultrasound reviewed 3. Agree with aspirin, Plavix, and high-dose statin 4. Continue with recommendations per neurology 5. Patient is a vascular surgical candidate. Further recommendations to follow regarding procedure and timing Thank you for this consultation and allowing us take part in the plan of care of your patient during his hospital stay The impression and plan of care has been dictated as directed. I performed a history and examination of this patient, discussed the same with the dictator. I agree with the dictator's note ,documented as a scribe. Any additional findings or plans will be noted.
--- NOTE | 2021-04-24 17:21 | MR ---
EXAMINATION TYPE: MR brain wo con DATE OF EXAM: 04/24/2021 COMPARISON: October 14, 2017 HISTORY: Left arm weakness. Multiplanar multiecho imaging of the brain without contrast. There is diffuse cerebral cortical atrophy. There is no mass effect nor midline shift. On the FLAIR i mages there is some gyriform and nodular increased signal in the right posterior parietal lobe. This area overall measures 4.5 x 3 cm. This area has increased signal also on the T2 and FLAIR images. There are multiple foci of increased signal in the periventricular white matter. Total number is appr oximately 25 and these measure up to 8 mm. There is some coalescence at the occipital horns of the la teral ventricles. There is some mucosal thickening in the ethmoid air cells. There is thinning of the corpus callosum. The brainstem is intact. Cerebellum is intact. Sella turcica appears normal. There is no evidence of orbital mass. There is mucosal thickening in the maxillary sinuses. IMPRESSION: Acute infarct right posterior parietal lobe cortex. White matter signal changes consistent with chronic small vessel ischemia. Sinusitis. Cerebral atrophy.
--- NOTE | 2021-04-24 18:01 | P.HPIM ---
History of Present Illness H&P Date: 04/17/21 Chief Complaint: Acute CVA/carotid dissection 80-year-old gentleman with medical history of diabetes mellitus (for at least 10-12 years), hypertension, hyperlipidemia, who presented to the emergency department on 04/24/2021 for left arm weakness and numbness that started two days ago. Patient presented at around 9:43 AM today to our ED. He is accompanied by his daughter (Melissa) who is at bedside. Due to that about 2 days ago he was doing gardening and all of a sudden he noted his a left upper extremity mostly to hand the forearm was weak as well as felt numbness. He denies any other associated symptoms with that that. Denies any difficulty swallowing, difficulty getting his words out, denied any weakness in the legs. He stated that he has a mild headache is chronic and that's in the back of the head and stated it was mild and denies any radiation denied any photophobia photophobia and nausea vomiting and he said that he has this headache on and off and that's been going on for a while but denies any headache currently. He denies as seeking any medical attention the with the weakness of the left upper extremity since he thought is given get better. He denies any history of stroke or TIA. CT of the brain is reported as cortical and subcortical hypodensity at the right frontal parietal junction, new from 10/14/2017. No significant sulcal effacem ent or midline shift. No acute intracranial hemorrhage. Correlate for possible subacute ischemia. Mild generalized atrophy and moderate burden of chronic small vessel ischemic disease. Moderate chronic ethmoid and maxillary sinus disease. 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 There is reconstitution of the nondominant left vertebral artery at the V3 and V4 segment. The dissection flap appears slightly thick suggesting a more chronic finding. Moderate aphthous carotid narrowing at the origin of the dominant right vertebral artery with otherwise remained patent. Severe 80-90% proximal right ICA stenosis sparing a length of 1 cm. Moderate after sclerotic change at the left bifurcation with a moderate, just under 70% proximal left ICA stenosis. It 1.4 cm left thyroid the lobe nodule can be further evaluated with a nonemergent dedicated thyroid ultrasound. CT angiography of the head is reported as mild segmental aphthous carotid narrowing throughout the bilateral carotid siphons. Reconstruction of the V3 and V4 segment of the nondominant left vertebral artery. No large vessel intracranial arterial occlusion. Significant stenosis or aneurysm changes seen. Review of Systems REVIEW OF SYSTEMS: CONSTITUTIONAL: No fever, no malaise, no fatigue. HEENT: No recent visual problems or hearing problems. Denied any sore throat. CARDIOVASCULAR: No chest pain, orthopnea, PND, no palpitations, no syncope. PULMONARY: No shortness of breath, no cough, no hemoptysis. GASTROINTESTINAL: No diarrhea, no nausea, no vomiting, no abdominal pain. NEUROLOGICAL: No headaches, no weakness, no numbness. HEMATOLOGICAL: Denies any bleeding or petechiae. GENITOURINARY: Denies any burning micturition, frequency, or urgency. MUSCULOSKELETAL/RHEUMATOLOGICAL: Denies any joint pain, swelling, or any muscle pain. ENDOCRINE: Denies any polyuria or polydipsia. The rest of the 14-point review of systems is negative. Past Medical History Past Medical History: Cancer, Diabetes Mellitus, GERD/Reflux, Hyperlipidemia, Hypertension, Osteoarthritis (OA), Prostate Disorder Additional Past Medical History / Comment(s): NIDDM, prostate cancer with prostatectomy, generalized arthritis LOSS OF VISON RT EYE, kidney stones, Cataract left eye. History of Any Multi-Drug Resistant Organisms: None Reported Past Surgical History: Joint Replacement, Prostate Surgery Additional Past Surgical History / Comment(s): Suprapubic prostatectomy with cystoscopy, total L hip arthroplasty, colonoscopy., Right Cataract 01/03/18 Past Anesthesia/Blood Transfusion Reactions: No Reported Reaction Past Psychological History: No Psychological Hx Reported Smoking Status: Never smoker Past Alcohol Use History: Rare Past Drug Use History: None Reported - Past Family History Father Family Medical History: Prostate Disorder Additional Family Medical History / Comment(s): Father at age 86 yrs. Mother Family Medical History: Cancer Additional Family Medical History / Comment(s): Mother of uterine cancer at the age of 52 yrs. Medications and Allergies Home Medications Medication Instructions Recorded Confirmed Type Metoprolol Tartrate [Lopressor] 25 mg PO BID 03/17/16 04/24/21 History sitaGLIPtin [Januvia] 50 mg PO DAILY 12/28/17 04/24/21 History amLODIPine [Norvasc] 5 mg PO DAILY 01/31/18 04/24/21 History Atorvastatin [Lipitor] 80 mg PO DAILY 04/24/21 04/24/21 History Tamsulosin [Flomax] 0.4 mg PO DAILY 04/24/21 04/24/21 History Allergies Allergy/AdvReac Type Severity Reaction Status Date / Time cortisone Allergy Anaphylaxis Verified 04/24/21 10:47 NSAIDS (Non-Steroidal Allergy Anaphylaxis Verified 04/24/21 10:47 Anti-Inflamma Physical Exam Vitals: Vital Signs Temp Pulse Resp BP Pulse Ox 04/24/21 09:47 97.4 F L 79 18 143/74 98 Intake and Output 04/23/21 04/24/21 04/24/21 22:59 06:59 14:59 Other: Weight 81.647 kg - Constitutional General appearance: Present: average body habitus, cooperative, no acute distress - EENT Eyes: Present: anicteric sclerae, EOMI, PERRLA, normal appearance ENT: Present: hearing grossly normal, normal oropharynx Ears: bilateral: normal - Neck Neck: Present: normal ROM. Absent: lymphadenopathy, rigidity, thyromegaly Carotids: negative: bruit present Thyroid: bilateral: normal size, negative: enlarged, nodule - Respiratory Respiratory: bilateral: CTA, negative: rales, rhonchi, wheezing - Cardiovascular Rhythm: regular Heart sounds: normal: S1, S2 Abnormal Heart Sounds: Absent: systolic murmur, diastolic murmur - Gastrointestinal General gastrointestinal: Present: normal bowel sounds, soft. Absent: distended, organomegaly, tenderness - Genitourinary Genitourinary Comment(s): deferred - Integumentary Integumentary: Present: normal turgor. Absent: jaundiced, rash, ulcer - Neurologic Neurologic: Present: CNII-XII intact. Absent: focal deficits - Musculoskeletal Musculoskeletal: Present: gait normal, strength equal bilaterally - Psychiatric Psychiatric: Present: A&O x's 3, appropriate affect, intact judgment & insight Results CBC & Chem 7: 04/24/21 10:03 04/24/21 10:03 Labs: Abnormal Lab Results - Last 24 Hours (Table) 04/24/21 Range/Units 10:02 POC Glucose (mg/dL) 142 H (75-99) mg/dL Assessment and Plan Assessment: 1. 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 Severe right internal carotid stenosis - Moderate stenosis of left ICA; vascular surgery is consulted and recommendations are pending 3. Acute renal injury; elevated BUN/creatinine of 37/1.87; patient on IV fluids and monitor strict MARCO A's, daily weights, renal function and electrolytes; avoid nephrotoxic agents 4. Diabetes mellitus; monitor Accu-Cheks every 6 hours as with insulin sliding scale 6. Hypertension; hold antihypertensive therapy for permissive hypertension; treat if diastolic blood pressures greater than 220 and diastolic blood pressures greater than 110 7. Hyperlipidemia; Lipitor 80 mg by mouth daily at bedtime DT prophylaxis; SCDs CODE STATUS; full code
[2021-04-24 20:33] LABS: Glucose,Whole Blood 136 mg/dL (75-99)
[2021-04-25 05:57] LABS: Glucose,Whole Blood 130 mg/dL (75-99)
[2021-04-25] MEDS: INSULIN ASPART (NovoLOG) 100 UNIT/ML VIAL SQ SCH ×4 (05:59→20:39)
[2021-04-25] MEDS: SODIUM CHLORIDE 0.9% 1,000 ML IV SCH ×2 (06:35→17:23)
[2021-04-25] MEDS: CLOPIDOGREL 75 MG TAB PO SCH (08:50)
[2021-04-25] MEDS: ACETAMINOPHEN TAB 325 MG TAB PO PRN ×2 (08:50→17:30)
--- NOTE | 2021-04-25 09:55 | P.PN ---
Subjective Progress Note Date: 04/25/21 The patient is seen at bedside and he feels he is doing the about the same compared to yesterday. He denies any worsening of the weakness or any new neurological problems. Objective - Vital Signs Vital signs: Vital Signs Temp 97.6 F 04/25/21 08:00 Pulse 90 04/25/21 08:00 Resp 17 04/25/21 08:00 BP 175/95 04/25/21 08:00 Pulse Ox 97 04/25/21 08:49 Intake & Output 04/24/21 04/25/21 04/25/21 18:59 06:59 18:59 Intake Total 0 Output Total 700 Balance -700 0 Weight 81.647 kg 78.5 kg Intake: Oral 0 Output: Urine 700 Other: Voiding Method Urinal # Voids 2 # Bowel Movements 1 - Exam GENERAL: The patient is lying in bed and is not in acute distress. NEUROLOGICAL: Higher mental function: The patient is awake, alert, oriented to self, place and stated the month is April but could not tell me the year. Patient is able to name objects appropriately (pen, watch, glasses). Patient is following simple commands. No aphasia. He has sensory neglect on bilateral stimulation but not visual. Cranial nerves: The pupils are round, equal and reactive to light and accommodation. Visual kumar are full to confrontation throughout. Extraocular movement is intact no nystagmus is noted. Facial sensation is normal to touch throughout. The facial strength is mild left nasolabial flattening. Hearing is severely decreased bilaterally to hand rub. Tongue is midline and moved [id number] without any difficulty. Mild to moderate dysarthria is noted (chronic per grand-daughter). Shoulder shrug is normal bilaterally. Motor: Gait is deferred. The strength is left upper extremity is 4. The right lower extremity is 3-4 (limited because of pain and that is chronic). Otherwise 5 over 5 throughout. Normal tone and bulk. Cerebellum: Hard time doing finger to nose on the left because of weakness while normal on the right. Sensation: Sensation is hard to assess because of cooperation but has sensory neglect on stimulatenous stimulation. Reflexes (right/left): 1+ throughout. Plantars is upgoing over the right and mute over the left. WORK-UP: CT of the brain is reported as cortical and subcortical hypodensity at the right frontal parietal junction, new from 10/14/2017. No significant sulcal effacement or midline shift. No acute intracranial hemorrhage. Correlate for possible subacute ischemia. Mild generalized atrophy and moderate burden of chronic small vessel ischemic disease. Moderate chronic ethmoid and maxillary sinus disease. 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 There is reconstitution of the nondominant left vertebral artery at the V3 and V4 segment. The dissection flap appears slightly thick suggesting a more chronic finding. Moderate aphthous carotid narrowing at the origin of the dominant right vertebral artery with otherwise remained patent. Severe 80-90% proximal right ICA stenosis sparing a length of 1 cm. Moderate after sclerotic change at the left bifurcation with a moderate, just under 70% proximal left ICA stenosis. It 1.4 cm left thyroid the lobe nodule can be further evaluated with a nonemergent dedicated thyroid ultrasound. CT angiography of the head is reported as mild segmental aphthous carotid narrowing throughout the bilateral carotid siphons. Reconstruction of the V3 and V4 segment of the nondominant left vertebral artery. No large vessel intracranial arterial occlusion. Significant stenosis or aneurysm changes seen. MRI of the brain is reported as acute infarct in the right posterior parietal lobe cortex. White matter signal change consistent with chronic small vessel ischemia. Sinusitis. Cerebral atrophy. Carotid duplex is reported as confirmation of significant stenosis greater than 70% proximal right internal carotid artery which correlates with the same day of CTA neck study. - Labs CBC & Chem 7: 04/24/21 10:03 04/24/21 10:03 Labs: Abnormal Lab Results - Last 24 Hours (Table) 04/24/21 04/24/21 04/24/21 Range/Units 10:02 10:03 20:32 Sodium 136 L (137-145) mmol/L Carbon Dioxide 18 L (22-30) mmol/L BUN 37 H (9-20) mg/dL Creatinine 1.87 H (0.66-1.25) mg/dL Glucose 160 H (74-99) mg/dL POC Glucose (mg/dL) 142 H 136 H (75-99) mg/dL 04/25/21 Range/Units 05:55 Sodium (137-145) mmol/L Carbon Dioxide (22-30) mmol/L BUN (9-20) mg/dL Creatinine (0.66-1.25) mg/dL Glucose (74-99) mg/dL POC Glucose (mg/dL) 130 H (75-99) mg/dL Assessment and Plan Assessment: * Acute left arm weakness and numbness (started on 04/22/2021) Likely due to subacute ischemic stroke (seen on CT head and MRI over right parietal). Etiology seems artery to artery. 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 * Moderate Left ICA stenosis (70%) per CTA * Diabetes mellitus * History of hypertension * History of hyperlipidemia Plan: * The patient was loaded with Plavix 300 mg once per the stroke attending (Dr. Alcocer) and stated no intervention from his side and does not need to be transfered out per ED team. Started the patient on aspirin 325mg (patient stated he is not allergic to ASA and this was asked while his Grand-daughter was at bedside) and Plavix 75mg daily. Continue Lipitor 80 mg daily at bedtime for secondary stroke prophylaxis. LDL goal in stroke is <70. * 2-D echo, hemoglobin A1c, TSH, Lipid panel are pending. * vascular surgery is on board. For the symptomatic Right ICA, I recommend addressing right ICA symptomatic stenosis within 1-2 weeks (can be done as outpatient). * Neurochecks Q4 hours. * On cardiac monitoring * PT, OT and SCHOOL PSYCHOLOGY PROFESSOR are consulted * We'll defer the rest of the medical management to the primary team. * Upon discharge the patient needs to follow-up with a neurologist as an outpatient within 1-2 weeks. For DVT prophylaxis:Started on subq heparin 5000U every 12 hours. The plan is discussed with the patient and his nurse. Jay Roa M.D. Neuro-hospitalist Time with Patient: Less than 30
[2021-04-25 11:48] LABS: Glucose,Whole Blood 134 mg/dL (75-99)
[2021-04-25 11:55] LABS: Basophils % (A) 1 %; Eosinophils # (A) 0.2 k/uL (0-0.7); Eosinophils % (A) 3 %; HCT 39.4 % (39.0-53.0); HGB 13.3 gm/dL (13.0-17.5); Lymphocytes # (A) 0.9 k/uL (1.0-4.8); Lymphocytes % (A) 13 %; MCH 32.1 pg (25.0-35.0); MCHC 33.8 g/dL (31.0-37.0); MCV 95.2 fL (80.0-100.0); Mean Platelet Volume 7.6; Monocytes # (A) 0.4 k/uL (0-1.0); Monocytes % (A) 6 %; Neutrophils # (A) 5.3 k/uL (1.3-7.7); Neutrophils % (A) 76 %; Platelet Count 182 k/uL (150-450); RBC 4.14 m/uL (4.30-5.90)
[2021-04-25 12:11] LABS: Calcium 8.1 mg/dL (8.4-10.2); Potassium 3.5 mmol/L (3.5-5.1)
[2021-04-25] MEDS: HEPARIN SODIUM,PORCINE/PF 5,000 UNIT/0.5 ML SYRINGE SQ SCH ×2 (12:39→20:39)
[2021-04-25] MEDS: ASPIRIN 325 MG TAB PO SCH (12:39)
--- NOTE | 2021-04-25 16:00 | ECHOF ---
Referral Reason:stroke MEASUREMENTS -------- HEIGHT: 165.1 cm WEIGHT: 81.6 kg BP: IVSd: 1.2 cm (0.6 - 1.1) LVIDd: 4.3 cm (3.9 - 5.3) LVPWd: 1.3 cm (0.6 - 1.1) EDV(Teich): 83 ml IVSs: 1.8 cm LVIDs: 2.9 cm LVPWs: 1.9 cm %IVS Thck: 50 % ESV(Teich): 33 ml EF(Teich): 61 % %FS: 32 % SV(Teich): 50 ml RVIDd: 2.8 cm (< 3.3) LALs A4C: 4.7 cm LAAs A4C: 17.7 cm LAESV A-L A4C: 56 ml LAESV MOD A4C: 55 ml LALs A2C: 5.0 cm LAAs A2C: 17.6 cm LAESV A-L A2C: 53 ml LAESV MOD A2C: 51 ml LAESV(A-L): 56 ml LAESV Index (A-L): 29.68 ml/m Ao Diam: 3.4 cm (2.0 - 3.7) AV Cusp: 1.9 cm (1.5 - 2.6) EPSS: 0.7 cm MV E Oscar: 0.42 m/s MV DecT: 235 ms MV Dec [place]: 1.8 m/s MV A Oscar: 0.83 m/s MV E/A Ratio: 0.51 MV PHT: 68 ms TR Vmax: 2.02 m/s TR maxP.36 mmHg RAP: 5.00 mmHg RVSP: 21.36 mmHg MV EF SLOPE: 102.09 mm/s (70 - 150) MV EXCURSION: 27.33 mm (> 18.000) FINDINGS -------- Sinus rhythm. This was a technically good study. The left ventricular size is normal. There is mild concentric left ventricular hypertrophy. Overa ll left ventricular systolic function is low-normal with, an EF between 50 - 55 %. The right ventricle is normal in size. LA is midly dilated 29-33ml/m2. The right atrial size is normal. There is mild aortic valve sclerosis. There is mild aortic regurgitation. Mild mitral annular calcification present. Mild mitral regurgitation is present. Mild tricuspid regurgitation present. Right ventricular systolic pressure is normal at < 35 mmHg. There is no pulmonic regurgitation present. There is no pericardial effusion. CONCLUSIONS -------- 1. The left ventricular size is normal. 2. There is mild concentric left ventricular hypertrophy. 3. Overall left ventricular systolic function is low-normal with, an EF between 50 - 55 %. 4. The right ventricle is normal in size. 5. LA is midly dilated 29-33ml/m2. 6. The right atrial size is normal. 7. There is mild aortic valve sclerosis. 8. There is mild aortic regurgitation. 9. Mild mitral annular calcification present. 10. Mild mitral regurgitation is present. 11. Mild tricuspid regurgitation present. 12. There is no pericardial effusion. CENTRAL SUPPLY TECH: Ute Engel RDCS
[2021-04-25 16:28] LABS: Glucose,Whole Blood 131 mg/dL (75-99)
--- NOTE | 2021-04-25 18:11 | P.PN ---
Subjective Progress Note Date: 04/25/21 80-year-old gentleman with medical history of diabetes mellitus (for at least 10-12 years), hypertension, hyperlipidemia, who presented to the emergency department on 04/24/2021 for left arm weakness and numbness that started two days ago. Patient presented at around 9:43 AM today to our ED. He is ac companied by his daughter (Melissa) who is at bedside. Due to that about 2 days ago he was doing gardening and all of a sudden he noted his a left upper extremity mostly to hand the forearm was weak as well as felt numbness. He denies any other associated symptoms with that that. Denies any difficulty swallowing, difficulty getting his words out, denied any weakness in the legs. He stated that he has a mild headache is chronic and that's in the back of the head and stated it was mild and denies any radiation denied any photophobia photophobia and nausea vomiting and he said that he has this headache on and off and that's been going on for a while but denies any headache currently. He denies as seeking any medical attention the with the weakness of the left upper extremity since he thought is given get better. He denies any history of stroke or TIA. CT of the brain is reported as cortical and subcortical hypodensity at the right frontal parietal junction, new from 10/14/2017. No significant sulcal effacement or midline shift. No acute intracranial hemorrhage. Correlate for possible subacute ischemia. Mild generalized atrophy and moderate burden of chronic small vessel ischemic disease. Moderate chronic ethmoid and maxillary sinus disease. 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 There is reconstitution of the non dominant left vertebral artery at the V3 and V4 segment. The dissection flap appears slightly thick suggesting a more chronic finding. Moderate aphthous carotid narrowing at the origin of the dominant right vertebral artery with otherwise remained patent. Severe 80-90% proximal right ICA stenosis sparing a length of 1 cm. Moderate after sclerotic change at the left bifurcation with a moderate, just under 70% proximal left ICA stenosis. It 1.4 cm left thyroid the lobe nodule can be further evaluated with a nonemergent dedicated thyroid ultrasound. CT angiography of the head is reported as mild segmental aphthous carotid narrowing throughout the bilateral carotid siphons. Reconstruction of the V3 and V4 segment of the nondominant left vertebral artery. No large vessel intracranial arterial occlusion. Significant stenosis or aneurysm changes seen. Objective - Vital Signs Vital signs: Vital Signs Temp 97.6 F 04/25/21 08:00 Pulse 90 04/25/21 08:00 Resp 17 04/25/21 08:00 BP 175/95 04/25/21 08:00 Pulse Ox 97 04/25/21 08:49 Intake & Output 04/24/21 04/25/21 04/25/21 18:59 06:59 18:59 Intake Total 0 Output Total 700 Balance -700 0 Weight 81.647 kg 78.5 kg Intake: Oral 0 Output: Urine 700 Other: Voiding Method Urinal Urinal # Voids 2 1 # Bowel Movements 1 1 - Exam - Constitutional General appearance: Present: average body habitus, cooperative, no acute distress - EENT Eyes: Present: anicteric sclerae, EOMI, PERRLA, normal appearance ENT: Present: hearing grossly normal, normal oropharynx Ears: bilateral: normal - Neck Neck: Present: normal ROM. Absent: lymphadenopathy, rigidity, thyromegaly Carotids: negative: bruit present Thyroid: bilateral: normal size, negative: enlarged, nodule - Respiratory Respiratory: bilateral: CTA, negative: rales, rhonchi, wheezing - Cardiovascular Rhythm: regular Heart sounds: normal: S1, S2 Abnormal Heart Sounds: Absent: systolic murmur, diastolic murmur - Gastrointestinal General gastrointestinal: Present: normal bowel sounds, soft. Absent: diste nded, organomegaly, tenderness - Genitourinary Genitourinary Comment(s): deferred - Integumentary Integumentary: Present: normal turgor. Absent: jaundiced, rash, ulcer - Neurologic Neurologic: Present: CNII-XII intact. Absent: focal deficits - Musculoskeletal Musculoskeletal: Present: gait normal, strength equal bilaterally - Psychiatric Psychiatric: Present: A&O x's 3, appropriate affect, intact judgment & insight - Labs CBC & Chem 7: 04/25/21 11:01 04/25/21 11:01 Labs: Abnormal Lab Results - Last 24 Hours (Table) 04/24/21 04/25/21 04/25/21 Range/Units 20:32 05:55 11:01 RBC (4.30-5.90) m/uL Lymphocytes # (1.0-4.8) k/uL Chloride 111 H (98-107) mmol/L Carbon Dioxide 18 L (22-30) mmol/L BUN 28 H (9-20) mg/dL Creatinine 1.53 H (0.66-1.25) mg/dL Glucose 192 H (74-99) mg/dL POC Glucose (mg/dL) 136 H 130 H (75-99) mg/dL Calcium 8.1 L (8.4-10.2) mg/dL 04/25/21 04/25/21 Range/Units 11:01 11:47 RBC 4.14 L (4.30-5.90) m/uL Lymphocytes # 0.9 L (1.0-4.8) k/uL Chloride (98-107) mmol/L Carbon Dioxide (22-30) mmol/L BUN (9-20) mg/dL Creatinine (0.66-1.25) mg/dL Glucose (74-99) mg/dL POC Glucose (mg/dL) 134 H (75-99) mg/dL Calcium (8.4-10.2) mg/dL Assessment and Plan Assessment: 1. 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 Severe right internal carotid stenosis - Moderate stenosis of left ICA; vascular surgery is consulted and recommendations are pending 3. Acute renal injury; elevated BUN/creatinine of 37/1.87; patient on IV fluids and monitor strict MARCO A's, daily weights, renal function and electrolytes; avoid nephrotoxic agents 4. Diabetes mellitus; monitor Accu-Cheks every 6 hours as with insulin sliding scale 6. Hypertension; hold antihypertensive therapy for permissive hypertension; treat if diastolic blood pressures greater than 220 and diastolic blood pressures greater than 110 7. Hyperlipidemia; Lipitor 80 mg by mouth daily at bedtime DT prophylaxis; SCDs CODE STATUS; full code
[2021-04-25 18:42] LABS: Hemoglobin A1C 7.2 % (4.0-6.0)
[2021-04-25 20:18] LABS: Glucose,Whole Blood 131 mg/dL (75-99)
[2021-04-25] MEDS: ATORVASTATIN 80 MG TAB PO SCH (20:40)
--- NOTE | 2021-04-25 23:09 | P.PN ---
Subjective Progress Note Date: 04/25/21 patient seen and examined. doing well. no complaints. denies any fevers, chills, chest pain or shortness of breath. Objective - Vital Signs Vital signs: Vital Signs Temp 98 F 04/25/21 20:00 Pulse 87 04/25/21 20:00 Resp 18 04/25/21 20:00 BP 131/88 04/25/21 20:00 Pulse Ox 98 04/25/21 20:00 Intake & Output 04/25/21 04/25/21 04/26/21 06:59 18:59 06:59 Intake Total 1050 240 Output Total 700 550 400 Balance -700 500 -160 Weight 78.5 kg Intake: Intake, IV Titration 450 Amount Sodium Chloride 0.9% 1, 450 000 ml @ 75 mls/hr IV . [id number] [facility] Rx#:[id number] Oral 600 240 Output: Urine 700 550 400 Other: Voiding Method Urinal Urinal # Voids 2 3 # Bowel Movements 1 1 - Constitutional General appearance: Present: average body habitus - EENT Eyes: Present: PERRLA - Respiratory Respiratory: bilateral: CTA - Cardiovascular Rhythm: regular - Gastrointestinal General gastrointestinal: Absent: distended - Neurologic Neurologic: Present: CNII-XII intact. Absent: focal deficits - Psychiatric Psychiatric: Present: A&O x's 3, appropriate affect, intact judgment & insight - Labs CBC & Chem 7: 04/25/21 11:01 04/25/21 11:01 Labs: Abnormal Lab Results - Last 24 Hours (Table) 04/25/21 04/25/21 04/25/21 Range/Units 05:55 11:01 11:01 RBC (4.30-5.90) m/uL Lymphocytes # (1.0-4.8) k/uL Chloride 111 H (98-107) mmol/L Carbon Dioxide 18 L (22-30) mmol/L BUN 28 H (9-20) mg/dL Creatinine 1.53 H (0.66-1.25) mg/dL Glucose 192 H (74-99) mg/dL POC Glucose (mg/dL) 130 H (75-99) mg/dL Hemoglobin A1c 7.2 H (4.0-6.0) % Calcium 8.1 L (8.4-10.2) mg/dL 04/25/21 04/25/21 04/25/21 Range/Units 11:01 11:47 16:27 RBC 4.14 L (4.30-5.90) m/uL Lymphocytes # 0.9 L (1.0-4.8) k/uL Chloride (98-107) mmol/L Carbon Dioxide (22-30) mmol/L BUN (9-20) mg/dL Creatinine (0.66-1.25) mg/dL Glucose (74-99) mg/dL POC Glucose (mg/dL) 134 H 131 H (75-99) mg/dL Hemoglobin A1c (4.0-6.0) % Calcium (8.4-10.2) mg/dL 04/25/21 Range/Units 20:17 RBC (4.30-5.90) m/uL Lymphocytes # (1.0-4.8) k/uL Chloride (98-107) mmol/L Carbon Dioxide (22-30) mmol/L BUN (9-20) mg/dL Creatinine (0.66-1.25) mg/dL Glucose (74-99) mg/dL POC Glucose (mg/dL) 131 H (75-99) mg/dL Hemoglobin A1c (4.0-6.0) % Calcium (8.4-10.2) mg/dL Assessment and Plan Assessment: 1. Symptomatic right ICA stenosis >90% 2. Left carotid stenosis 70% 3. Left sided weakness 4. DM Plan: Discussed with neurology and patient would benefit from surgical intervention within the next 2 weeks. Reviewed CTA and doppler with patient and discussed surgical options (CEA vs. TCAR). Due to his age and co-morbidities I would recommend TCAR. Will have him follow up next week and schedule the following week for surgical intervention.
[2021-04-26] MEDS: ACETAMINOPHEN TAB 325 MG TAB PO PRN (03:19)
[2021-04-26] MEDS: SODIUM CHLORIDE 0.9% 1,000 ML IV SCH (04:32)
[2021-04-26 06:10] LABS: Glucose,Whole Blood 126 mg/dL (75-99)
[2021-04-26] MEDS: INSULIN ASPART (NovoLOG) 100 UNIT/ML VIAL SQ SCH ×4 (06:23→22:26)
[2021-04-26] MEDS: ASPIRIN 325 MG TAB PO SCH (08:31)
[2021-04-26] MEDS: TAMSULOSIN 0.4 MG CAP.ER.24H PO SCH (08:31)
[2021-04-26] MEDS: CLOPIDOGREL 75 MG TAB PO SCH (08:31)
[2021-04-26] MEDS: LINAGLIPTIN 5 MG TABLET PO SCH (08:31)
[2021-04-26] MEDS: HEPARIN SODIUM,PORCINE/PF 5,000 UNIT/0.5 ML SYRINGE SQ SCH ×2 (08:31→22:26)
[2021-04-26] MEDS ORDERED: METOPROLOL TARTRATE 25 MG TAB PO SCH (09:00)
[2021-04-26] MEDS: METOPROLOL TARTRATE 50 MG TAB PO SCH ×2 (09:05→22:25)
[2021-04-26 11:40] LABS: Glucose,Whole Blood 125 mg/dL (75-99)
[2021-04-26 11:53] LABS: Chol/HDL Ratio 3.57; LDL Cholesterol,Calculated 54.6 mg/dL (0.0-131.0); VLDL Calculation 17.4 mg/dL (5.00-40.00)
--- NOTE | 2021-04-26 12:37 | P.PN ---
Subjective Progress Note Date: 04/26/21 The patient is seen at bedside and he feels about the same and denies any new neurological problems. Per the nurse the patient had run of A-fib with RVR. Per nurse, cardiology is on board and is aware of it. Objective - Vital Signs Vital signs: Vital Signs Temp 98.2 F 04/26/21 12:05 Pulse 71 04/26/21 12:05 Resp 18 04/26/21 12:05 BP 142/65 04/26/21 12:05 Pulse Ox 98 04/26/21 12:05 Intake & Output 04/25/21 04/26/21 04/26/21 18:59 06:59 18:59 Intake Total 1050 240 520 Output Total 550 1500 200 Balance 500 -1260 320 Weight 77.5 kg Intake: Intake, IV Titration 450 Amount Sodium Chloride 0.9% 1, 450 000 ml @ 75 mls/hr IV . [id number] [facility] Rx#:[id number] Oral 600 240 520 Output: Urine 550 1500 200 Other: Voiding Method Urinal Urinal # Voids 3 # Bowel Movements 1 - Exam GENERAL: The patient is lying in bed and is not in acute distress. NEUROLOGICAL: Higher mental function: The patient is awake, alert, oriented to self, place and stated the month is April but could not tell me the year. Patient is able to name objects appropriately (pen, watch, glasses). Patient is following simple commands. No aphasia. He has sensory neglect on bilateral stimulation but not visual. Cranial nerves: The pupils are round, equal and reactive to light and accommodation. Visual kumar are full to confrontation throughout. Extraocular movement is intact no nystagmus is noted. Facial sensation is normal to touch throughout. The facial strength is mild left nasolabial flattening. Hearing is severely decreased bilaterally to hand rub. Tongue is midline and moved si de-to-side without any difficulty. Mild to moderate dysarthria is noted (chronic per grand-daughter). Shoulder shrug is normal bilaterally. Motor: Gait is deferred. The strength is left upper extremity is 4+ to 5- while left hand is 3-4. The right lower extremity is 3-4 (limited because of pain and that is chronic). Otherwise 5 over 5 throughout. Normal tone and bulk. Cerebellum: Hard time doing finger to nose on the left because of weakness while normal on the right. Sensation: Sensation is hard to assess because of cooperation but has sensory neglect on stimulatenous stimulation. Reflexes (right/left): 1+ throughout. Plantars is upgoing over the right and mute over the left. WORK-UP: CT of the brain is reported as cortical and subcortical hypodensity at the right frontal parietal junction, new from 10/14/2017. No significant sulcal effacement or midline shift. No acute intracranial hemorrhage. Correlate for possible subacute ischemia. Mild generalized atrophy and moderate burden of chronic small vessel ischemic disease. Moderate chronic ethmoid and maxillary sinus disease. 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 There is reconstitution of the nondominant left vertebral artery at the V3 and V4 segment. The dissection flap appears slightly thick suggesting a more chronic finding. Moderate aphthous carotid narrowing at the origin of the dominant right vertebral artery with otherwise remained patent. Severe 80-90% proximal right ICA stenosis sparing a length of 1 cm. Moderate after sclerotic change at the left bifurcation with a moderate, just under 70% proximal left ICA stenosis. It 1.4 cm left thyroid the lobe nodule can be further evaluated with a nonemergent dedicated thyroid ultrasound. CT angiography of the head is reported as mild segmental aphthous carotid narrowing throughout the bilateral carotid siphons. Reconstruction of the V3 and V4 segment of the nondominant left vertebral artery. No large vessel intracranial arterial occlusion. Significant stenosis or aneurysm changes seen. MRI of the brain is reported as acute infarct in the right posterior parietal lobe cortex. White matter signal change consistent with chronic small vessel ischemia. Sinusitis. Cerebral atrophy. Carotid duplex is reported as confirmation of significant stenosis greater than 70% proximal right internal carotid artery which correlates with the same day of CTA neck study. Lipid panel: Triglyceride of 87, cholesterol of 100, LDLs 54 and HDL 48. TSH is 2.59 (normal) Hemoglobin A1c: 7.2 (normal is 4-6) - Labs CBC & Chem 7: 04/25/21 11:04/25/21 11:01 Labs: Abnormal Lab Results - Last 24 Hours (Table) 04/25/21 04/25/21 04/25/21 Range/Units 11: 11: 16:27 POC Glucose (mg/dL) 131 H (75-99) mg/dL Hemoglobin A1c 7.2 H (4.0-6.0) % HDL Cholesterol 28.0 L (40.0-60.0) mg/dL 04/25/21 04/26/21 04/26/21 Range/Units 20:17 05:53 11:39 POC Glucose (mg/dL) 131 H 126 H 125 H (75-99) mg/dL Hemoglobin A1c (4.0-6.0) % HDL Cholesterol (40.0-60.0) mg/dL Assessment and Plan Assessment: * Acute left arm weakness and numbness (started on 04/22/2021) Likely due to subacute ischemic stroke (seen on CT head and MRI over right parietal). Etiology seems embolic (carotid (artery to artery emboli) > cardiac). 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 * Moderate Left ICA stenosis (70%) per CTA * Diabetes mellitus (with current HbA1c: 7.2) * History of hypertension * History of hyperlipidemia Plan: * The patient was loaded with Plavix 300 mg once per the stroke attending (Dr. Alcocer) and stated no intervention from his side and does not need to be transfered out per ED team. * Continue aspirin 325mg (patient stated he is not allergic to ASA and this was asked while his Grand-daughter was at bedside) and Plavix 75mg daily. Spoke with Dr. Cardiology team and wants to start eliquis and I informed them if can be delayed to tomorrow to avoid risk of hemorrhagic conversion (especially with recent stroke) and they are in agreement. Upon starting anticoagulation can stop either ASA or Plavix (not both since needed for carotid stenosis. Cardiology want to stop ASA and continue Plavix in addition to anticoagulation which I am in agreement). Continue Lipitor 80 mg daily at bedtime for secondary stroke prophylaxis. LDL goal in stroke is <70. * Vascular surgery is on board. For the symptomatic Right ICA, I recommend addressing right ICA symptomatic stenosis within 1-2 weeks (can be done as outpatient) and spoke with Vascular surgery team. * Neurochecks Q4 hours. * On cardiac monitoring * PT, OT and DIRECTOR OF CAMPUS RECREATION are consulted * Cardiology team is on board. * We'll defer the rest of the medical management to the primary team. * Upon discharge the patient needs to follow-up with a neurologist as an outpatient within 1-2 weeks. For DVT prophylaxis: Continue subq heparin 5000U every 12 hours (once on eliquis can stop subq heparin). The plan is discussed with the patient and his nurse. Dr. Bobo will take over neurological service tomorrow AM. Jay Roa M.D. Neuro-hospitalist Time with Patient: Less than 30
[2021-04-26 16:13] LABS: Glucose,Whole Blood 115 mg/dL (75-99)
--- NOTE | 2021-04-26 17:37 | P.PN ---
Subjective Progress Note Date: 04/26/21 Principal diagnosis: Acute ischemic stroke New onset atrial fibrillation with RVR Symptomatic severe proximal right ICA stenosis 80-year-old gentleman with medical history of diabetes mellitus (for at least 10-12 years), hypertension, hyperlipidemia, who presented to the emergency department on 04/24/2021 for left arm weakness and numbness that started two days ago. Patient presented at around 9:43 AM today to our ED. He is accompanied by his daughter (Melissa) who is at bedside. Due to that about 2 days ago he was doing gardening and all of a sudden he noted his a left upper extremity mostly to hand the forearm was weak as well as felt numbness. He denies any other associated symptoms with that that. Denies any difficulty swallowing, difficulty getting his words out, denied any weakness in the legs. He stated that he has a mild headache is chronic and that's in the back of the head and stated it was mild and denies any radiation denied any photophobia photophobia and nausea vomiting and he said that he has this headache on and off and that's been going on for a while but denies any headache currently. He denies as seeking any medical attention the with the weakness of the left upper extremity since he thought is given get better. He denies any history of stroke or TIA. CT of the brain is reported as cortical and subcortical hypodensity at the right frontal parietal junction, new from 10/14/2017. No significant sulcal ef facement or midline shift. No acute intracranial hemorrhage. Correlate for possible subacute ischemia. Mild generalized atrophy and moderate burden of chronic small vessel ischemic disease. Moderate chronic ethmoid and maxillary sinus disease. 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 There is reconstitution of the nondominant left vertebral artery at the V3 and V4 segment. The dissection flap appears slightly thick suggesting a more chronic finding. Moderate aphthous carotid narrowing at the origin of the dominant right vertebral artery with otherwise remained patent. Severe 80-90% proximal right ICA stenosis sparing a length of 1 cm. Moderate after sclerotic change at the left bifurcation with a moderate, just under 70% proximal left ICA stenosis. It 1.4 cm left thyroid the lobe nodule can be further evaluated with a nonemergent dedicated thyroid ultrasound. CT angiography of the head is reported as mild segmental aphthous carotid narrowing throughout the bilateral carotid siphons. Reconstruction of the V3 and V4 segment of the nondominant left vertebral artery. No large vessel intracranial arterial occlusion. Significant stenosis or aneurysm changes seen. 04/26/2021 Patient is seen and evaluated in room at bedside; denies any complaint of chest pain or shortness of breath; patient had episode of elevated heart rate; EKG was done which revealed atrial fibrillation Vital signs are reviewed, currently temperature of 98.2, pulse 71, respiration 18 and blood pressure 142/65 Patient has been restarted on home dose of metoprolol which resulted in improved heart rate; metoprolol was increased to 50 mg twice a day; no anticoagulation at this time due to acute CVA; cardiology recommending to start patient on anticoagulation possibly next 24 hours to avoid risk of hemorrhagic conversion; cardiology recommending to continue with current dose of Plavix and discontinue aspirin along with added anticoagulation in next 24 hours; patient will remain on Lipitor 80 mg daily for secondary stroke prophylaxis Vascular surgery on board for right ICA symptomatic stenosis with plans for fred cheo within 1-2 weeks Objective - Vital Signs Vital signs: Vital Signs Temp 97.7 F 04/26/21 07:50 Pulse 109 H 04/26/21 08:00 Resp 18 04/26/21 08:00 BP 144/78 04/26/21 08:00 Pulse Ox 99 04/26/21 08:00 Intake & Output 04/25/21 04/26/21 04/26/21 18:59 06:59 18:59 Intake Total 1050 240 520 Output Total 550 1500 Balance 500 -1260 520 Weight 77.5 kg Intake: Intake, IV Titration 450 Amount Sodium Chloride 0.9% 1, 450 000 ml @ 75 mls/hr IV . [id number] [facility] Rx#:[id number] Oral 600 240 520 Output: Urine 550 1500 Other: Voiding Method Urinal Urinal # Voids 3 # Bowel Movements 1 - Exam - Constitutional General appearance: Present: average body habitus, cooperative, no acute distress - EENT Eyes: Present: anicteric sclerae, EOMI, PERRLA, normal appearance ENT: Present: hearing grossly normal, normal oropharynx Ears: bilateral: normal - Neck Neck: Present: normal ROM. Absent: lymphadenopathy, rigidity, thyromegaly Carotids: negative: bruit present Thyroid: bilateral: normal size, negative: enlarged, nodule - Respiratory Respiratory: bilateral: CTA, negative: rales, rhonchi, wheezing - Cardiovascular Rhythm: regular Heart sounds: normal: S1, S2 Abnormal Heart Sounds: Absent: systolic murmur, diastolic murmur - Gastrointestinal General gastrointestinal: Present: normal bowel sounds, soft. Absent: distended, organomegaly, tenderness - Genitourinary Genitourinary Comment(s): deferred - Integumentary Integumentary: Present: normal turgor. Absent: jaundiced, rash, ulcer - Neurologic Neurologic: Present: CNII-XII intact. Absent: focal deficits - Musculoskeletal Musculoskeletal: Present: gait normal, strength equal bilaterally - Psychiatric Psychiatric: Present: A&O x's 3, appropriate affect, intact judgment & insight - Labs CBC & Chem 7: 04/25/21 11:01 04/25/21 11:01 Labs: Abnormal Lab Results - Last 24 Hours (Table) 04/25/21 04/25/21 04/25/21 Range/Units 11:01 11:01 11:01 RBC 4.14 L (4.30-5.90) m/uL Lymphocytes # 0.9 L (1.0-4.8) k/uL Chloride 111 H (98-107) mmol/L Carbon Dioxide 18 L (22-30) mmol/L BUN 28 H (9-20) mg/dL Creatinine 1.53 H (0.66-1.25) mg/dL Glucose 192 H (74-99) mg/dL POC Glucose (mg/dL) (75-99) mg/dL Hemoglobin A1c 7.2 H (4.0-6.0) % Calcium 8.1 L (8.4-10.2) mg/dL 04/25/21 04/25/21 04/25/21 Range/Units 11:47 16:27 20:17 RBC (4.30-5.90) m/uL Lymphocytes # (1.0-4.8) k/uL Chloride (98-107) mmol/L Carbon Dioxide (22-30) mmol/L BUN (9-20) mg/dL Creatinine (0.66-1.25) mg/dL Glucose (74-99) mg/dL POC Glucose (mg/dL) 134 H 131 H 131 H (75-99) mg/dL Hemoglobin A1c (4.0-6.0) % Calcium (8.4-10.2) mg/dL 04/26/21 Range/Units 05:53 RBC (4.30-5.90) m/uL Lymphocytes # (1.0-4.8) k/uL Chloride (98-107) mmol/L Carbon Dioxide (22-30) mmol/L BUN (9-20) mg/dL Creatinine (0.66-1.25) mg/dL Glucose (74-99) mg/dL POC Glucose (mg/dL) 126 H (75-99) mg/dL Hemoglobin A1c (4.0-6.0) % Calcium (8.4-10.2) mg/dL Assessment and Plan Assessment: 1. Subacute CVA; - Patient presenting with acute left arm weakness and numbness - CT of the head reveals cortical/subcortical hypodensity in right frontoparietal region with 1.5 cm long dissection flap of left subclavian artery- appears chronic - CT revealed severe proximal right ICA stenosis at 80-90% and moderate left ICA stenosis of 70% - Patient not a candidate for TPA; patient is placed on aspirin and loaded with Plavix 300 mg 1 followed by 75 mg daily; Lipitor 80 mg by mouth daily at bedtime - Continue to monitor neuro checks every 4 hours; consult PT/OT and POWER DIGGER OPERATOR - Order 2-D echo, TSH and HbA1c 2. Severe right internal carotid stenosis - Moderate stenosis of left ICA; vascular surgery is consulted and recommendations are pending 3. Acute renal injury; elevated BUN/creatinine of 37/1.87; patient on IV fluids and monitor strict MARCO A's, daily weights, renal function and electrolytes; avoid nephrotoxic agents 4. Diabetes mellitus; monitor Accu-Cheks every 6 hours as with insulin sliding scale 6. Hypertension; hold antihypertensive therapy for permissive hypertension; treat if diastolic blood pressures greater than 220 and diastolic blood pressures greater than 110 7. Hyperlipidemia; Lipitor 80 mg by mouth daily at bedtime DT prophylaxis; SCDs CODE STATUS; full code
[2021-04-26 20:12] LABS: Glucose,Whole Blood 135 mg/dL (75-99)
[2021-04-26] MEDS ORDERED: APIXABAN 2.5 MG TABLET PO SCH (21:00)
[2021-04-26] MEDS: ATORVASTATIN 80 MG TAB PO SCH (22:26)
[2021-04-27 06:09] LABS: Glucose,Whole Blood 142 mg/dL (75-99)
[2021-04-27] MEDS: INSULIN ASPART (NovoLOG) 100 UNIT/ML VIAL SQ SCH ×4 (06:30→21:06)
[2021-04-27] MEDS ORDERED: ASPIRIN 325 MG TAB PO SCH (09:00)
[2021-04-27] MEDS: HEPARIN SODIUM,PORCINE/PF 5,000 UNIT/0.5 ML SYRINGE SQ SCH (09:01)
[2021-04-27] MEDS: METOPROLOL TARTRATE 50 MG TAB PO SCH ×2 (09:01→21:06)
[2021-04-27] MEDS: CLOPIDOGREL 75 MG TAB PO SCH (09:01)
[2021-04-27] MEDS: TAMSULOSIN 0.4 MG CAP.ER.24H PO SCH (09:01)
[2021-04-27] MEDS: LINAGLIPTIN 5 MG TABLET PO SCH (09:01)
--- NOTE | 2021-04-27 09:52 | CONS ---
CONSULTATION Mr. Fletcher is a patient of Dr. Escalante. He was in sinus rhythm and he underwent evaluation of the carotids and has carotid stenosis. However, over the weekend he went into atrial fibrillation with RVR. This is the first time we have documented atrial fibrillation. He is currently on aspirin and Plavix. I spoke to the nurse and I spoke to the neurologist Dr. Roa. In view of the size of the stroke, Dr. Roa would like to hold off on anticoagulation. We will start this today on Tuesday 2.5 mg twice daily. We will use one anti-platelet agent such as Plavix along with this and stop the aspirin. In addition, rate control medications for atrial fibrillation will be initiated. Please see the full consult to follow. MMODL / IJN: [id number] /
[2021-04-27 11:46] LABS: Glucose,Whole Blood 125 mg/dL (75-99)
--- NOTE | 2021-04-27 13:20 | P.CRDCN ---
History of Present Illness Consult date: 04/27/21 History of present illness: HISTORY OF PRESENT ILLNESS: This is a 80-year-old male with a past medical history significant for coronary artery disease, hypertension, hyperlipidemia, diabetes mellitus, and carotid stenosis. Patient follows in the office with Dr. Escalante. We have been asked to see the patient in consultation for atrial fibrillation. Patient examined at the bedside. Patient initially presented to the hospital due to left upper ext remity weakness. Patient underwent MRI revealing acute infarct of the right posterior parietal lobe cortex. Patient was evaluated by neurology and started on aspirin and Plavix. Patient was noted to have short episodes of atrial fibrillation yesterday. He is currently in sinus rhythm. He continues to have weakness of his left upper extremity. EKG reveals sinus mechanism with no signs of acute ischemia CT angio head and neck: 80-90% proximal right internal carotid artery stenosis. 70% proximal left internal carotid artery stenosis. Carotid Doppler: 70% stenosis of right internal carotid artery. Echocardiogram completed revealed ejection fraction 50-55%. Mild aortic regurgitation. Mild mitral regurgitation. Mild tricuspid regurgitation. Chest xray diminished inspiration. No new suspicious focal infiltrate. Laboratory data: WBC 7.0. Hemoglobin 13.8. Platelet count 182. Sodium 135. Potassium 3.5. BUN 28. Creatinine 1.53. Current home cardiac medications include Norvasc 5 mg daily, metoprolol tartrate 25 mg twice a day, and atorvastatin 80 mg daily Patient underwent cardiac catheterization in March 2016 with FFR of the LM which was 0.70. He also underwent cardiac catheterization in February 2016 revealing 50% stenosis of mid LM, 70% ostial RCA, and 70% mid RCA. REVIEW OF SYSTEMS: At the time of my exam: CONSTITUTIONAL: Denies fever or chills. HEENT: Denies blurred vision, vision changes, or eye pain. Denies hemoptysis CARDIOVASCULAR: Denies chest pain. Denies orthopnea. Denies PND. Denies palpitations RESPIRATORY: Denies shortness of breath. GASTROINTESTINAL: Denies abdominal pain. Denies nausea or vomiting. HEMATOLOGIC: Denies bleeding disorders. GENITOURINARY: Denies any blood in urine. SKIN: Denies pruitis. Denies rash. PHYSICAL EXAM: VITAL SIGNS: Reviewed. GENERAL: Well-developed in no acute distress. HEENT: Head is normocephalic. Pupils are equal, round. Sclerae anicteric. Mucous membranes of the mouth are moist. Neck supple. No JVD or thyromegaly LUNGS: Respirations even and unlabored. Lungs essentially clear to auscultation bilaterally. HEART: Regular rate and rhythm. S1 and S2 heard. ABDOMEN: Soft. Nondistended. Nontender. EXTREMITIES: Left upper extremity weakness. No clubbing or cyanosis. Peripheral pulses intact. No lower extremity edema NEUROLOGIC: Awake and alert. Oriented x 3. ASSESSMENT: Acute CVA New-onset paroxysmal atrial fibrillation, currently maintaining sinus mechanism Bilateral carotid stenosis, right 80-90% and left 70% Hypertension Hyperlipidemia Diabetes PLAN: Continue telemetry monitoring Begin Eliquis 2.5 mg twice a day Continue Plavix 75 mg daily Continue metoprolol 50 mg twice a day Discontinue aspirin Further recommendations pending patient's course Nurse practitioner note has been reviewed by physician. Signing provider agrees with the documented findings, assessment, and plan of care. Past Medical History Past Medical History: Cancer, Diabetes Mellitus, GERD/Reflux, Hyperlipidemia, Hypertension, Osteoarthritis (OA), Prostate Disorder Additional Past Medical History / Comment(s): NIDDM, prostate cancer with prostatectomy, generalized arthritis LOSS OF VISON RT EYE, kidney stones, Cataract left eye. History of Any Multi-Drug Resistant Organisms: None Reported Past Surgical History: Joint Replacement, Prostate Surgery Additional Past Surgical History / Comment(s): Suprapubic prostatectomy with cystoscopy, total L hip arthroplasty, colonoscopy., Right Cataract 01/03/18 Past Anesthesia/Blood Transfusion Reactions: No Reported Reaction Past Psychological History: No Psychological Hx Reported Smoking Status: Never smoker Past Alcohol Use History: Rare Past Drug Use History: None Reported - Past Family History Father Family Medical History: Prostate Disorder Additional Family Medical History / Comment(s): Father at age 86 yrs. Mother Family Medical History: Cancer Additional Family Medical History / Comment(s): Mother of uterine cancer at the age of 52 yrs. Medications and Allergies Home Medications Medication Instructions Recorded Confirmed Type Metoprolol Tartrate [Lopressor] 25 mg PO BID 03/17/16 04/24/21 History sitaGLIPtin [Januvia] 50 mg PO DAILY 12/28/17 04/24/21 History amLODIPine [Norvasc] 5 mg PO DAILY 01/31/18 04/24/21 History Atorvastatin [Lipitor] 80 mg PO DAILY 04/24/21 04/24/21 History Tamsulosin [Flomax] 0.4 mg PO DAILY 04/24/21 04/24/21 History Apixaban [Eliquis] 2.5 mg PO BID #60 tab 04/27/21 Rx Allergies Allergy/AdvReac Type Severity Reaction Status Date / Time cortisone Allergy Anaphylaxis Verified 04/24/21 10:47 NSAIDS (Non-Steroidal Allergy Anaphylaxis Verified 04/24/21 10:47 Anti-Inflamma Physical Exam Vitals: Vital Signs Temp Pulse Pulse Resp BP BP BP 04/27/21 11:27 98.1 F 78 19 130/65 04/27/21 08:23 04/27/21 08:00 97.8 F 99 18 136/86 04/27/21 04:00 97.3 F L 90 17 141/71 04/27/21 02:00 89 17 04/27/21 00:00 89 17 169/88 04/26/21 20:00 87 16 04/26/21 19:47 97.4 F L 87 16 166/79 04/26/21 16:00 98.2 F 71 71 16 131/60 131/61 Pulse Ox 04/27/21 11:27 99 04/27/21 08:23 96 04/27/21 08:00 96 04/27/21 04:00 97 04/27/21 02:00 04/27/21 00:00 97 04/26/21 20:00 04/26/21 19:47 97 04/26/21 16:00 98 Intake and Output 04/26/21 04/27/21 04/27/21 22:59 06:59 14:59 Intake Total 180 354 Output Total 725 650 550 Balance -545 -650 -196 Intake: Oral 180 354 Output: Urine 725 650 550 Other: Voiding Method Urinal Urinal Urinal # Voids 1 1 Weight 76.5 kg Results 04/25/21 11:01 04/25/21 11:01 Current Medications Generic Name Dose Route Start Last Admin Trade Name Freq PRN Reason Stop Dose Admin Acetaminophen 650 mg 04/25/21 08:37 04/26/21 03:19 Acetaminophen Tab 325 Mg Tab PO 650 mg Q6HR PRN Administration Fever and/ or Pain Apixaban 2.5 mg 04/27/21 21:00 Apixaban 2.5 Mg Tablet PO BID [facility] Protocol Atorvastatin Calcium 80 mg 04/25/21 21:00 04/26/21 22:26 Atorvastatin 80 Mg Tab PO 80 mg HS LISA Administration Clopidogrel Bisulfate 75 mg 04/27/21 09:00 04/27/21 09:01 Clopidogrel 75 Mg Tab PO 75 mg DAILY LISA Administration Insulin Aspart 0 unit 04/25/21 07:30 04/27/21 12:14 Insulin Aspart (Novolog) 100 Unit/Ml Vial SQ Not Given ACHS [facility] Protocol Linagliptin 5 mg 04/26/21 09:00 04/27/21 09:01 Linagliptin 5 Mg Tablet PO 5 mg DAILY [facility] Administration Metoprolol Tartrate 50 mg 04/26/21 09:00 04/27/21 09:01 Metoprolol Tartrate 50 Mg Tab PO 50 mg BID LISA Administration Tamsulosin HCl 0.4 mg 04/26/21 09:00 04/27/21 09:01 Tamsulosin 0.4 Mg Cap.Er.24h PO 0.4 mg DAILY LISA Administration Intake and Output 04/26/21 04/27/21 04/27/21 22:59 06:59 14:59 Intake Total 180 354 Output Total 721 200 550 Balance -545 -650 -196 Intake: Oral 180 354 Output: Urine 621 650 550 Other: Voiding Method Urinal Urinal Urinal # Voids 1 1 Weight 76.5 kg 04/25/21 11:01 04/25/21 11:01
--- NOTE | 2021-04-27 13:56 | P.PN ---
Subjective Progress Note Date: 04/27/21 Patient was seen for a follow-up. Patient initially seen by Dr. Jay Roa. Please refer to his note for details. Patient is an 80-year-old male came with left-sided weakness and dysarthria. Patient was found to have right ICA stenosis. Patient also has atrial fibrillation with rapid ventricular rate. Patient initially loaded with Plavix and placed on aspirin and Plavix, and Lipitor. Patient also has evidence of left subclavian dissection 1.5 cm, which appears old. After patient was found to have atrial fibrillation, patient started on Apixaban 2.5 mg twice a day and maintained on Plavix, aspirin discontinued. Patient states his doing better. He has lacks dexterity of the left hand. Oth erwise he moves his left side well. No headache. She appears slightly short of breath. MRI of the brain revealed acute infarct right posterior parietal lobe cortex. Objective - Vital Signs Vital signs: Vital Signs Temp 98.1 F 04/27/21 11:27 Pulse 78 04/27/21 11:27 Resp 19 04/27/21 11:27 BP 130/65 04/27/21 11:27 Pulse Ox 99 04/27/21 11:27 Intake & Output 04/26/21 04/27/21 04/27/21 18:59 06:59 18:59 Intake Total 1220 118 Output Total 500 1375 550 Balance 720 -1375 -432 Weight 76.5 kg Intake: Oral 1220 118 Output: Urine 500 1375 550 Other: Voiding Method Urinal Urinal Urinal # Voids 1 1 - Exam Patient is an elderly male, in no acute distress. He knows it is April 2021, and that we're in [facility]. Patient is alert awake oriented to time place and person. Speech and language functions are normal. Patient can name and repeat very well. Can name the ear lobe and knuckles without difficulty. Attention, concentration and fund of knowledge is adequate. On cranial examination, pupils are round and reacting to light, visual kumar are full on confrontation, extraocular muscles are intact with no nystagmus. Face is symmetric, tongue protrudes to the midline. Palatal elevation and sens ation normal, hearing and shoulder shrug normal, facial sensation normal. Shoulder shrug normal. On muscle strength testing, there is mild left pronator drift. Deltoid 5/4, biceps 5/5, triceps 5/5, scallop cutter machine 5/4+. Strength is fairly normal and equal in the lower limbs. Deep tendon reflexes are 2 in the upper limbs, 1 in the lower limbs and plantars downgoing. Sensory to touch is equal with no neglect. Cerebellar function showed moderate ataxia for [id number] testing on the left, normal on the right.. Gait walks with a walker. Today feet are hurting. On general examination, S1-S2 audible. Abdomen is soft nontender. Chest is clear. Peripheral pulses are present. No edema. - Labs CBC & Chem 7: 04/25/21 11:01 04/25/21 11:01 Labs: Abnormal Lab Results - Last 24 Hours (Table) 04/26/21 04/26/21 04/27/21 Range/Units 16:11 20:08 06:07 POC Glucose (mg/dL) 115 H 135 H 142 H (75-99) mg/dL 04/27/21 Range/Units 11:45 POC Glucose (mg/dL) 125 H (75-99) mg/dL Assessment and Plan Assessment: * Acute left arm weakness and numbness (started on 04/22/2021) Likely due to subacute ischemic stroke (seen on CT head and MRI over right parietal). Luisa ology seems embolic (carotid (artery to artery emboli) > cardiac). 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 * Moderate Left ICA stenosis (70%) per CTA * Diabetes mellitus (with current HbA1c: 7.2) * History of hypertension * History of hyperlipidemia Plan: * Patient has been seen by cardiology, and started on Eliquis 2.5 mg twice a day and also maintained on Plavix 75 mg due to significant atherosclerotic carotid artery disease. Aspirin has been discontinued. Patient also on Lipitor 80 mg daily. LDL goal in stroke is <70. * Vascular surgery is on board. For the symptomatic Right ICA, recommend addressing right ICA symptomatic stenosis within 1-2 weeks (can be done as outpatient). * Telemetry monitoring showing sinus rhythm with some PVCs and trigeminy. Atrial fibrillation in last 24 hours. * PT, OT and BEATER BOSS are consulted * Cardiology team is on board. * We'll defer the rest of the medical management to the primary team. * Upon discharge the patient needs to follow-up with a neurologist as an outpatient within 1-2 weeks. * For DVT prophylaxis: Continue eliquis. * Neurologically clear. Possible to subacute rehab at [place] tomorrow. WORK-UP: CT of the brain is reported as cortical and subcortical hypodensity at the right frontal parietal junction, new from 10/14/2017. No significant sulcal effacement or midline shift. No acute intracranial hemorrhage. Correlate for possible subacute ischemia. Mild generalized atrophy and moderate burden of chronic small vessel ischemic disease. Moderate chronic ethmoid and maxillary sinus disease. 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 There is reconstitution of the nondominant left vertebral artery at the V3 and V4 segment. The dissection flap appears slightly thick suggesting a more chronic finding. Moderate athe rosclerotic narrowing at the origin of the dominant right vertebral artery, which otherwise remained patent. Severe 80-90% proximal right ICA stenosis spanning a length of 1 cm. Moderate atherosclerotic change at the left bifurcation with a moderate, just under 70% proximal left ICA stenosis. It 1.4 cm left thyroid the lobe nodule can be further evaluated with a nonemergent dedicated thyroid ultrasound. CT angiography of the head is reported as mild segmental atherosclerotic narrowing throughout the bilateral carotid siphons. Reconstruction of the V3 and V4 segment of the nondominant left vertebral artery. No large vessel intracranial arterial occlusion. Significant stenosis or aneurysm changes seen. MRI of the brain is reported as acute infarct in the right posterior parietal lobe cortex. White matter signal change consistent with chronic small vessel ischemia. Sinusitis. Cerebral atrophy. Carotid duplex is reported as confirmation of significant stenosis greater than 70% proximal right internal carotid artery which correlates with the same day of CTA neck study. Lipid panel: Triglyceride of 87, cholesterol of 100, LDLs 54 and HDL 48. TSH is 2.59 (normal) Hemoglobin A1c: 7.2 (normal is 4-6)
--- NOTE | 2021-04-27 14:19 | P.PN ---
Subjective Progress Note Date: 04/27/21 The patient was seen and examined with no acute changes through the night. Yesterday he had a run of atrial fibrillation, cardiology was consulted. Plan is to start the patient on ELiquis 2.5 mg twice a day, this was discussed with neurology who wanted anticoagulation on hold until today. Patient denies any shortness of breath, chest pain, or new focal deficits. Objective - Vital Signs Vital signs: Vital Signs Temp 97.8 F 04/27/21 08:00 Pulse 99 04/27/21 08:00 Resp 18 04/27/21 08:00 BP 136/86 04/27/21 08:00 Pulse Ox 96 04/27/21 08:23 Intake & Output 04/26/21 04/27/21 04/27/21 18:59 06:59 18:59 Intake Total 1220 118 Output Total 500 1375 300 Balance 720 -1180 -675 Weight 76.5 kg Intake: Oral 1220 118 Output: Urine 500 1375 300 Other: Voiding Method Urinal Urinal Urinal # Voids 1 1 - Exam General appearance: The patient is alert, oriented, appears in no acute distress. HET: Head is normocephalic and atraumatic. Pupils are equal and reactive. Neck: Supple without lymphadenopathy. Trachea midline. Heart: S1 S2. Regular rate and rhythm. Lungs: Clear to auscultation. Abdomen: Soft, nontender. Neurological: No focal deficits. Strength and sensation are grossly intact. - Labs CBC & Chem 7: 04/25/21 11:01 04/25/21 11:01 Labs: Abnormal Lab Results - Last 24 Hours (Table) 04/25/21 04/26/21 04/26/21 Range/Units 11:01 11:39 16:11 POC Glucose (mg/dL) 125 H 115 H (75-99) mg/dL HDL Cholesterol 28.0 L (40.0-60.0) mg/dL 04/26/21 04/27/21 Range/Units 20:08 06:07 POC Glucose (mg/dL) 135 H 142 H (75-99) mg/dL HDL Cholesterol (40.0-60.0) mg/dL Assessment and Plan Assessment: 1. Symptomatic right ICA stenosis greater than 90% 2. Left carotid stenosis 70% 3. Left-sided weakness 4. Diabetes mellitus Plan: Plan is for patient to follow-up with Dr. Bales this week and scheduled for outpatient surgical intervention for right ICA stenosis next week. Patient to continue Plavix and statin. Cardiology has started patient on Ahlquist 2.5 mg twice a day. Thank you for this consultation we will sign off at this time. Patient has been cleared by vascular surgery for discharge. The impression and plan of care has been dictated as directed. I performed a history and examination of this patient, discussed the same with the dictator. I agree with the dictator's note ,documented as a scribe. Any additional findings or plans will be noted.
--- NOTE | 2021-04-27 16:39 | P.CRDCN ---
History of Present Illness History of present illness: This is Dr. Guillory dictating a consult on this patient The patient was interviewed and examined on 26 of April IMPRESSION / ASSESSMENT: Acute ischemic stroke, embolic in nature Newly discovered atrial fibrillation with RVR Severe vertebral and carotid artery disease Chronic left subclavian dissection Patient is on atorvastatin 80 mg by mouth daily, with an LDL of 55 Now he is on aspirin and Plavix TSH was normal at 2.6 PLAN: Rate control for atrial fibrillation metoprolol 50 mg twice daily. Discussed with the nurse I spoke to Dr. Roa the neurologist and he suggested that we wait on starting anticoagulation Once it is safe to proceed, based on the size of the infarct, I would recommend Plavix plus ELIQUIS 2.5 mg twice daily and rate control for atrial fibrillation He is over the age of 78 years, weight is greater than 60 kg but his creatinine is greater than 1.5 Once ELIQUIS is begun he should be observed for at least 24 hours prior to discharge Follow-up with Dr. Resendez regarding assessment for carotid and vertebral disease HPI Patient presented to the emergency room with left arm numbness and weakness on April 24. He was already taking aspirin He was also on metoprolol Januvia amlodipine atorvastatin 80 mg a day and Flomax. He is a patient Dr. Resendez Review called on the for evaluation for A. fib with RVR The patient was resting comfortably and when questioned directly, only then did he admit to palpitations He does have a past history of palpitations and he says when he lies on his side he can hear his heartbeat going fast from time to time No chest discomfort no shortness of breath ROS: No fever chills or rigors, no cough, phlegm or expectoration, no nausea, vomiting or diarrhea, no hematuria, dysuria, no musculoskeletal complaints, no strokes or seizures, no skin lesions. EXAMINATION: 130/65 mmHg, heart rate in the 90s Afebrile Breath sounds are reduced bilaterally Irregular rhythm. When I examined him he is tachycardic between 130 240 beats a minute with minimal symptoms No orthopnea REVIEW OF LABS, ECG & MEDICAL DATA past medical history of diabetes, type II, dyslipidemia and hypertension CT of the brain showed a cortical and subcortical hypodensity in the right frontoparietal junction which was new. No hemorrhage or effacement of the sulci 1.5 cm long dissection flap in the left subclavian artery which appears chronic Atherosclerotic narrowing at the origin of the right dominant vertebral artery, patent Is 90% stenosis right RCA, 1 cm length 70% left ICA stenosis Twelve-lead EKG showed sinus rhythm with occasional PVCs 2-D echo and Doppler study showed normal LV size and function mild LVH Mild valvular abnormalities MRI of the brain showed an acute infarct right posterior parietal lobe, cortical 4.5 x 3 cm size Normal electrolytes sodium 136 potassium 4.9 BUN 37 and creatinine 1.87 and subsequently 28 and 1.53, consistent with chronic kidney disease Past Medical History Past Medical History: Cancer, Diabetes Mellitus, GERD/Reflux, Hyperlipidemia, Hypertension, Osteoarthritis (OA), Prostate Disorder Additional Past Medical History / Comment(s): NIDDM, prostate cancer with prostatectomy, generalized arthritis LOSS OF VISON RT EYE, kidney stones, Cataract left eye. History of Any Multi-Drug Resistant Organisms: None Reported Past Surgical History: Joint Replacement, Prostate Surgery Additional Past Surgical History / Comment(s): Suprapubic prostatectomy with cystoscopy, total L hip arthroplasty, colonoscopy., Right Cataract 01/03/18 Past Anesthesia/Blood Transfusion Reactions: No Reported Reaction Past Psychological History: No Psychological Hx Reported Smoking Status: Never smoker Past Alcohol Use History: Rare Past Drug Use History: None Reported - Past Family History Father Family Medical History: Prostate Disorder Additional Family Medical History / Comment(s): Father at age 86 yrs. Mother Family Medical History: Cancer Additional Family Medical History / Comment(s): Mother of uterine cancer at the age of 52 yrs. Medications and Allergies Home Medications Medication Instructions Recorded Confirmed Type RX: Metoprolol Tartrate [Lopressor] 25 mg PO BID 03/17/16 04/24/21 History sitaGLIPtin [Januvia] 50 mg PO DAILY 12/28/17 04/24/21 History RX: amLODIPine [Norvasc] 5 mg PO DAILY 01/31/18 04/24/21 History RX: Atorvastatin [Lipitor] 80 mg PO DAILY 04/24/21 04/24/21 History Tamsulosin [Flomax] 0.4 mg PO DAILY 04/24/21 04/24/21 History Apixaban [Eliquis] 2.5 mg PO BID #60 tab 04/27/21 Rx Allergies Allergy/AdvReac Type Severity Reaction Status Date / Time cortisone Allergy Anaphylaxis Verified 04/24/21 10:47 NSAIDS (Non-Steroidal Allergy Anaphylaxis Verified 04/24/21 10:47 Anti-Inflamma Physical Exam Vitals: Vital Signs Temp Pulse Resp BP BP Pulse Ox 04/27/21 13:41 78 19 04/27/21 11:27 98.1 F 78 19 130/65 99 04/27/21 08:23 96 04/27/21 08:00 97.8 F 99 18 136/86 96 04/27/21 04:00 97.3 F L 90 17 141/71 97 04/27/21 02:00 89 17 04/27/21 00:00 89 17 169/88 97 04/26/21 20:00 87 16 04/26/21 19:47 97.4 F L 87 16 166/79 97 Intake and Output 04/27/21 04/27/21 04/27/21 06:59 14:59 22:59 Intake Total 354 Output Total 650 550 Balance -650 -196 Intake: Oral 354 Output: Urine 650 550 Other: Voiding Method Urinal Urinal # Voids 1 Weight 76.5 kg Results 04/25/21 11:01 04/25/21 11:01 Current Medications Generic Name Dose Route Start Last Admin Trade Name Freq PRN Reason Stop Dose Admin Acetaminophen 650 mg 04/25/21 08:37 04/26/21 03:19 Acetaminophen Tab 325 Mg Tab PO 650 mg Q6HR PRN Administration Fever and/ or Pain Apixaban 2.5 mg 04/27/21 21:00 Apixaban 2.5 Mg Tablet PO BID [facility] Protocol Atorvastatin Calcium 80 mg 04/25/21 21:00 04/26/21 22:26 Atorvastatin 80 Mg Tab PO 80 mg HS LISA Administration Clopidogrel Bisulfate 75 mg 04/27/21 09:00 04/27/21 09:01 Clopidogrel 75 Mg Tab PO 75 mg DAILY LISA Administration Insulin Aspart 0 unit 04/25/21 07:30 04/27/21 12:14 Insulin Aspart (Novolog) 100 Unit/Ml Vial SQ Not Given ACHS [facility] Protocol Linagliptin 5 mg 04/26/21 09:00 04/27/21 09:01 Linagliptin 5 Mg Tablet PO 5 mg DAILY LISA Administration Metoprolol Tartrate 50 mg 04/26/21 09:00 04/27/21 09:01 Metoprolol Tartrate 50 Mg Tab PO 50 mg BID LISA Administration Tamsulosin HCl 0.4 mg 04/26/21 09:00 04/27/21 09:01 Tamsulosin 0.4 Mg Cap.Er.24h PO 0.4 mg DAILY LISA Administration Intake and Output 04/27/21 04/27/21 04/27/21 06:59 14:59 22:59 Intake Total 354 Output Total 650 550 Balance -650 -196 Intake: Oral 354 Output: Urine 650 550 Other: Voiding Method Urinal Urinal # Voids 1 Weight 76.5 kg 04/25/21 11:01 04/25/21 11:01
[2021-04-27 17:01] LABS: Glucose,Whole Blood 140 mg/dL (75-99)
[2021-04-27] MEDS: ACETAMINOPHEN TAB 325 MG TAB PO PRN (17:36)
[2021-04-27 20:05] LABS: Glucose,Whole Blood 175 mg/dL (75-99)
[2021-04-27] MEDS: APIXABAN 2.5 MG TABLET PO SCH (21:06)
[2021-04-27] MEDS: ATORVASTATIN 80 MG TAB PO SCH (21:06)
[2021-04-28] MEDS: ACETAMINOPHEN TAB 325 MG TAB PO PRN ×3 (01:16→10:36)
[2021-04-28 05:59] LABS: Glucose,Whole Blood 134 mg/dL (75-99)
[2021-04-28] MEDS: INSULIN ASPART (NovoLOG) 100 UNIT/ML VIAL SQ SCH ×4 (06:25→20:31)
[2021-04-28] MEDS: CLOPIDOGREL 75 MG TAB PO SCH (09:04)
[2021-04-28] MEDS: LINAGLIPTIN 5 MG TABLET PO SCH (09:04)
[2021-04-28] MEDS: APIXABAN 2.5 MG TABLET PO SCH ×2 (09:04→20:31)
[2021-04-28] MEDS: TAMSULOSIN 0.4 MG CAP.ER.24H PO SCH (09:04)
[2021-04-28] MEDS: METOPROLOL TARTRATE 50 MG TAB PO SCH ×2 (09:04→20:31)
--- NOTE | 2021-04-28 10:56 | P.PN ---
Subjective Progress Note Date: 04/27/21 Principal diagnosis: Acute ischemic stroke New onset atrial fibrillation with RVR Symptomatic severe proximal right ICA stenosis 80-year-old gentleman with medical history of diabetes mellitus (for at least 10-12 years), hypertension, hyperlipidemia, who presented to the emergency department on 04/24/2021 for left arm weakness and numbness that started two days ago. Patient presented at around 9:43 AM today to our ED. He is accompanied by his daughter (Melissa) who is at bedside. Due to that about 2 days ago he was doing gardening and all of a sudden he noted his a left upper extremity mostly to hand the forearm was weak as well as felt numbness. He denies any other associated symptoms with that that. Denies any difficulty swallowing, difficulty getting his words out, denied any weakness in the legs. He stated that he has a mild headache is chronic and that's in the back of the head and stated it was mild and denies any radiation denied any photophobia photophobia and nausea vomiting and he said that he has this headache on and off and that's been going on for a while but denies any headache currently. He denies as seeking any medical attention the with the weakness of the left upper extremity since he thought is given get better. He denies any history of stroke or TIA. CT of the brain is reported as cortical and subcortical hypodensity at the right frontal parietal junction, new from 10/14/2017. No significant sulcal eff acement or midline shift. No acute intracranial hemorrhage. Correlate for possible subacute ischemia. Mild generalized atrophy and moderate burden of chronic small vessel ischemic disease. Moderate chronic ethmoid and maxillary sinus disease. 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 There is reconstitution of the nondominant left vertebral artery at the V3 and V4 segment. The dissection flap appears slightly thick suggesting a more chronic finding. Moderate aphthous carotid narrowing at the origin of the dominant right vertebral artery with otherwise remained patent. Severe 80-90% proximal right ICA stenosis sparing a length of 1 cm. Moderate after sclerotic change at the left bifurcation with a moderate, just under 70% proximal left ICA stenosis. It 1.4 cm left thyroid the lobe nodule can be further evaluated with a nonemergent dedicated thyroid ultrasound. CT angiography of the head is reported as mild segmental aphthous carotid narrowing throughout the bilateral carotid siphons. Reconstruction of the V3 and V4 segment of the nondominant left vertebral artery. No large vessel intracranial arterial occlusion. Significant stenosis or aneurysm changes seen. 04/26/2021 Patient is seen and evaluated in room at bedside; denies any complaint of chest pain or shortness of breath; patient had episode of elevated heart rate; EKG was done which revealed atrial fibrillation Vital signs are reviewed, currently temperature of 98.2, pulse 71, respiration 18 and blood pressure 142/65 Patient has been restarted on home dose of metoprolol which resulted in improved heart rate; metoprolol was increased to 50 mg twice a day; no anticoagulation at this time due to acute CVA; cardiology recommending to start patient on anticoagulation possibly next 24 hours to avoid risk of hemorrhagic conversion; cardiology recommending to continue with current dose of Plavix and discontinue aspirin along with added anticoagulation in next 24 hours; patient will remain on Lipitor 80 mg daily for secondary stroke prophylaxis Vascular surgery on board for right ICA symptomatic stenosis with plans for surg pily within 1-2 weeks 04/27/2021 Patient is currently resting in the bed comfortably. Patient had episode of atrial fibrillation yesterday currently maintained in sinus rhythm. Patient was admitted to the hospital due to left upper extremities weakness and MRI showed acute CVA. Denied any complaints of chest pain or shortness of breath. Patient has been afebrile. Patient was started on anticoagulation the form of Eliquis 2.5 mg twice a day and continue with Plavix. Aspirin has been discontinued. Heart rate is controlled with metoprolol 50 mg twice daily. Cardiology and neurology is on board. Vascular surgery is following for right ICA symptomatic stenosis. Planning for surgery in next 1-2 weeks. Current medications reviewed. Objective - Vital Signs Vital signs: Vital Signs Temp 98.1 F 04/27/21 11:27 Pulse 78 04/27/21 13:41 Resp 19 04/27/21 13:41 BP 130/65 04/27/21 11:27 Pulse Ox 99 04/27/21 11:27 Intake & Output 04/26/21 04/27/21 04/27/21 18:59 06:59 18:59 Intake Total 1220 590 Output Total 500 1375 750 Balance 720 -1375 -160 Weight 76.5 kg Intake: Oral 1220 590 Output: Urine 500 1375 750 Other: Voiding Method Urinal Urinal Urinal # Voids 1 1 - Exam - Exam - Constitutional General appearance: Present: average body habitus, cooperative, no acute distress - EENT Eyes: Present: anicteric sclerae, EOMI, PERRLA, normal appearance ENT: Present: hearing grossly normal, normal oropharynx Ears: bilateral: normal - Neck Neck: Present: normal ROM. Absent: lymphadenopathy, rigidity, thyromegaly Carotids: negative: bruit present Thyroid: bilateral: normal size, negative: enlarged, nodule - Respiratory Respiratory: bilateral: CTA, negative: rales, rhonchi, wheezing, bibasilar diminished sounds. - Cardiovascular Rhythm: regular Heart sounds: normal: S1, S2 Abnormal Heart Sounds: Absent: systolic murmur, diastolic murmur - Gastrointestinal General gastrointestinal: Present: normal bowel sounds, soft. Absent: distended, organomegaly, tenderness - Genitourinary Genitourinary Comment(s): deferred - Integumentary Integumentary: Present: normal turgor. Absent: jaundiced, rash, ulcer - Neurologic Neurologic: Present: CNII-XII intact. Patient does have left upper extremity weakness. - Musculoskeletal Musculoskeletal: Present: gait normal, strength equal bilaterally - Psychiatric Psychiatric: Present: A&O x's 3, appropriate affect, intact judgment & insight - Labs CBC & Chem 7: 04/25/21 11:01 04/25/21 11:01 Labs: Abnormal Lab Results - Last 24 Hours (Table) 04/26/21 04/27/21 04/27/21 Range/Units 20:08 06:07 11:45 POC Glucose (mg/dL) 135 H 142 H 125 H (75-99) mg/dL 04/27/21 Range/Units 16:59 POC Glucose (mg/dL) 140 H (75-99) mg/dL Assessment and Plan Assessment: 1. New onset atrial fibrillation. Heart rate is controlled and patient converted back to sinus rhythm. Started on anticoagulation with Eliquis and also being continued on metoprolol 50 mg twice daily next and heart rate is controlled. Cardiology is on board. 1. 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 Started on Eliquis due to new onset atrial fibrillation. 2. Severe right internal carotid stenosis - Moderate stenosis of left ICA; vascular surgery is is following and is planning for surgery in the next 1-2 weeks. 3. Acute renal injury; elevated BUN/creatinine of 37/1.87; patient on IV fluids and monitor strict MARCO A's, daily weights, renal function and electrolytes; avoid nephrotoxic agents 4. Diabetes mellitus; monitor Accu-Cheks every 6 hours as with insulin sliding scale 6. Hypertension; hold antihypertensive therapy for permissive hypertension; tr eat if diastolic blood pressures greater than 220 and diastolic blood pressures greater than 110 7. Hyperlipidemia; Lipitor 80 mg by mouth daily at bedtime DT prophylaxis; SCDs CODE STATUS; full code Time with Patient: Greater than 30
--- NOTE | 2021-04-28 11:49 | XR ---
EXAMINATION TYPE: XR Hip Complete RT DATE OF EXAM: 04/28/2021 COMPARISON: NONE HISTORY: Pain TECHNIQUE: 2 views submitted FINDINGS: There is complete loss of joint space. There is remodeling of the femoral head suggestive of osteonec rosis. Diffuse osteopenia. No obvious acute fracture or dislocation. Soft tissue ossification noted. Vascular calcification in the pelvis. IMPRESSION: 1. Severe arthritic change with complete loss of joint space. Correlate for osteonecrosis of the femo ral head.
[2021-04-28 11:50] LABS: Calcium 9.4 mg/dL (8.4-10.2); Potassium 4.5 mmol/L (3.5-5.1)
[2021-04-28 11:59] LABS: Basophils % (A) 0 %; Eosinophils # (A) 0.1 k/uL (0-0.7); Eosinophils % (A) 1 %; HCT 48.5 % (39.0-53.0); HGB 16.1 gm/dL (13.0-17.5); Lymphocytes # (A) 0.6 k/uL (1.0-4.8); Lymphocytes % (A) 5 %; MCH 31.8 pg (25.0-35.0); MCHC 33.2 g/dL (31.0-37.0); MCV 95.5 fL (80.0-100.0); Mean Platelet Volume 7.9; Monocytes # (A) 0.6 k/uL (0-1.0); Monocytes % (A) 5 %; Neutrophils # (A) 10.9 k/uL (1.3-7.7); Neutrophils % (A) 88 %; Platelet Count 230 k/uL (150-450); RBC 5.08 m/uL (4.30-5.90); WBC 12.3 k/uL (3.8-10.6)
[2021-04-28 12:02] LABS: Glucose,Whole Blood 195 mg/dL (75-99)
--- NOTE | 2021-04-28 14:31 | P.PN ---
Subjective Progress Note Date: 04/28/21 HISTORY OF PRESENT ILLNESS: This is a 80-year-old male with a past medical history significant for coronary artery disease, hypertension, hyperlipidemia, diabetes mellitus, and carotid stenosis. Patient follows in the office with Dr. Escalante. We have been asked to see the patient in consultation for atrial fibrillation. Patient examined at the bedside. Patient initially presented to the hospital due to left upper extremity weakness. Patient underwent MRI revealing acute infarct of the right posterior parietal lobe cortex. Patient was evaluated by neurology and started on aspirin and Plavix. Patient was noted to have short episodes of atrial fibrillation yesterday. He is currently in sinus rhythm. He continues to have weakness of his left upper extremity. EKG reveals sinus mechanism with no signs of acute ischemia CT angio head and neck: 80-90% proximal right internal carotid artery stenosis. 70% proximal left internal carotid artery stenosis. Carotid Doppler: 70% stenosis of right internal carotid artery. Echocardiogram completed revealed ejection fraction 50-55%. Mild aortic regurgitation. Mild mitral regurgitation. Mild tricuspid regurgitation. Chest xray diminished inspiration. No new suspicious focal infiltrate. Laboratory data: WBC 7.0. Hemoglobin 13.8. Platelet count 182. Sodium 135. Potassium 3.5. BUN 28. Creatinine 1.53. Current home cardiac medications include Norvasc 5 mg daily, metoprolol tartrate 25 mg twice a day, and atorvastatin 80 mg daily Patient underwent cardiac catheterization in March 2016 with FFR of the LM which was 0.70. He also underwent cardiac catheterization in February 2016 revealing 50% stenosis of mid LM, 70% ostial RCA, and 70% mid RCA. 04/28/2021 Patient examined this afternoon. He is sitting up in the chair. He complains of significant right hip pain. He underwent an x-ray of his hip today and results are pending. He continues to report weakness of his left hand. He denies chest pain or pressure. Denies short of breath. Vital signs are stable. Telemetry reveals sinus mechanism PHYSICAL EXAM: VITAL SIGNS: Reviewed. GENERAL: Well-developed in no acute distress. HEENT: Head is normocephalic. Pupils are equal, round. Sclerae anicteric. Mucous membranes of the mouth are moist. Neck supple. No JVD or thyromegaly LUNGS: Respirations even and unlabored. Lungs essentially clear to auscultation bilaterally. HEART: Regular rate and rhythm. S1 and S2 heard. ABDOMEN: Soft. Nondistended. Nontender. EXTREMITIES: Left upper extremity weakness. No clubbing or cyanosis. Peripheral pulses intact. No lower extremity edema NEUROLOGIC: Awake and alert. Oriented x 3. ASSESSMENT: Acute CVA New-onset paroxysmal atrial fibrillation, currently maintaining sinus mechanism Bilateral carotid stenosis, right 80-90% and left 70% Hypertension Hyperlipidemia Diabetes PLAN: Continue telemetry monitoring Continue Eliquis and Plavix Continue metoprolol 50 mg twice a day Further recommendations pending patient's course Nurse practitioner note has been reviewed by physician. Signing provider agrees with the documented findings, assessment, and plan of care. Objective - Vital Signs Vital signs: Vital Signs Temp 97.9 F 04/28/21 08:00 Pulse 84 04/28/21 10:35 Resp 17 04/28/21 10:35 BP 151/79 04/28/21 10:35 Pulse Ox 98 04/28/21 10:35 Intake & Output 04/27/21 04/28/21 04/28/21 18:59 06:59 18:59 Intake Total 590 520 Output Total 750 1125 Balance -160 -1125 520 Weight 77.5 kg Intake: Oral 590 520 Output: Urine 750 1125 Other: Voiding Method Urinal Urinal Urinal # Voids 1 1 # Bowel Movements 1 - Labs CBC & Chem 7: 04/28/21 11:29 04/28/21 11:29 Labs: Abnormal Lab Results - Last 24 Hours (Table) 04/27/21 04/27/21 04/28/21 Range/Units 16:59 20:04 05:58 WBC (3.8-10.6) k/uL Neutrophils # (1.3-7.7) k/uL Lymphocytes # (1.0-4.8) k/uL Carbon Dioxide (22-30) mmol/L BUN (9-20) mg/dL Creatinine (0.66-1.25) mg/dL Glucose (74-99) mg/dL POC Glucose (mg/dL) 140 H 175 H 134 H (75-99) mg/dL 04/28/21 04/28/21 04/28/21 Range/Units 11:29 11:29 12:00 WBC 12.3 H (3.8-10.6) k/uL Neutrophils # 10.9 H (1.3-7.7) k/uL Lymphocytes # 0.6 L (1.0-4.8) k/uL Carbon Dioxide 19 L (22-30) mmol/L BUN 42 H (9-20) mg/dL Creatinine 1.67 H (0.66-1.25) mg/dL Glucose 207 H (74-99) mg/dL POC Glucose (mg/dL) 195 H (75-99) mg/dL
[2021-04-28 16:05] LABS: Glucose,Whole Blood 147 mg/dL (75-99)
[2021-04-28] MEDS: HYDROcodone/APAP 5-325MG 1 EACH TAB PO PRN (17:34)
[2021-04-28 20:01] LABS: Glucose,Whole Blood 162 mg/dL (75-99)
[2021-04-28] MEDS: ATORVASTATIN 80 MG TAB PO SCH (20:31)
[2021-04-29 06:18] LABS: Glucose,Whole Blood 135 mg/dL (75-99)
[2021-04-29] MEDS: INSULIN ASPART (NovoLOG) 100 UNIT/ML VIAL SQ SCH ×4 (06:54→21:02)
[2021-04-29] MEDS: CLOPIDOGREL 75 MG TAB PO SCH (09:00)
[2021-04-29] MEDS: APIXABAN 2.5 MG TABLET PO SCH ×2 (09:00→21:02)
[2021-04-29] MEDS: METOPROLOL TARTRATE 50 MG TAB PO SCH ×2 (09:00→21:01)
[2021-04-29] MEDS: TAMSULOSIN 0.4 MG CAP.ER.24H PO SCH (09:00)
[2021-04-29] MEDS: LINAGLIPTIN 5 MG TABLET PO SCH (09:00)
[2021-04-29 09:03] LABS: Basophils % (A) 0 %; Eosinophils # (A) 0.2 k/uL (0-0.7); Eosinophils % (A) 2 %; HCT 45.5 % (39.0-53.0); HGB 15.3 gm/dL (13.0-17.5); Lymphocytes # (A) 1.2 k/uL (1.0-4.8); Lymphocytes % (A) 11 %; MCHC 33.7 g/dL (31.0-37.0); MCV 94.9 fL (80.0-100.0); Mean Platelet Volume 8.4; Monocytes # (A) 0.8 k/uL (0-1.0); Monocytes % (A) 7 %; Neutrophils # (A) 8.8 k/uL (1.3-7.7); Neutrophils % (A) 79 %; Platelet Count 240 k/uL (150-450); RBC 4.79 m/uL (4.30-5.90); WBC 11.2 k/uL (3.8-10.6)
[2021-04-29 09:06] LABS: Calcium 9.4 mg/dL (8.4-10.2)
[2021-04-29 11:37] LABS: Glucose,Whole Blood 169 mg/dL (75-99)
--- NOTE | 2021-04-29 12:21 | P.PN ---
Progress Note - Text Progress Note Date: 04/29/21 X-ray reviewed. 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 These are all chronic in nature. No acute fracture or dislocations noted at this time. Full consult pending
--- NOTE | 2021-04-29 12:31 | P.CNOR ---
History of Present Illness - [facility] Consult date: 04/29/21 Requesting physician: Delmi Daley Consult reason: other (right hip pain) History of present illness: Patient is an 80-year-old male presenting the hospital with some left arm weakness on 05/02/2021. We were consulted this morning 02/27/2021 for right hip pain. Patient says yesterday began developing some right hip pain that worsened when he was up and moving up around the room with his crutches. Patient says he got up into bed and he says he usually sleeps on his right hip and was not able do that because the pain. Patient says normally just takes aspirin for pain and doesn't take anything else. Patient states the pain is very severe and he rates as 10/10. He describes it as sharp in nature and is worse right at the hip as he points to the lateral aspect of the hip. He also says it radiates down the thigh sometimes. Patient denies any trauma/falls to the area. Patient says he has previously had left total hip arthroplasty years ago performed by Dr. Hanson. Patient denies chest pain, fever, shortness breath, nausea, vomiting, change in vision, loss of bowel/bladder control. Past Medical History Past Medical History: Cancer, Diabetes Mellitus, GERD/Reflux, Hyperlipidemia, Hypertension, Osteoarthritis (OA), Prostate Disorder Additional Past Medical History / Comment(s): NIDDM, prostate cancer with prostatectomy, generalized arthritis LOSS OF VISON RT EYE, kidney stones, Cataract left eye. History of Any Multi-Drug Resistant Organisms: None Reported Past Surgical History: Joint Replacement, Prostate Surgery Additional Past Surgical History / Comment(s): Suprapubic prostatectomy with cystoscopy, total L hip arthroplasty, colonoscopy., Right Cataract 01/03/18 Past Anesthesia/Blood Transfusion Reactions: No Reported Reaction Past Psychological History: No Psychological Hx Reported Smoking Status: Never smoker Past Alcohol Use History: Rare Past Drug Use History: None Reported - Past Family History Father Family Medical History: Prostate Disorder Additional Family Medical History / Comment(s): Father at age 86 yrs. Mother Family Medical History: Cancer Additional Family Medical History / Comment(s): Mother of uterine cancer at the age of 52 yrs. Medications and Allergies Home Medications Medication Instructions Recorded Confirmed Type Metoprolol Tartrate [Lopressor] 25 mg PO BID 03/17/16 04/24/21 History sitaGLIPtin [Januvia] 50 mg PO DAILY 12/28/17 04/24/21 History amLODIPine [Norvasc] 5 mg PO DAILY 01/31/18 04/24/21 History Atorvastatin [Lipitor] 80 mg PO DAILY 04/24/21 04/24/21 History Tamsulosin [Flomax] 0.4 mg PO DAILY 04/24/21 04/24/21 History Apixaban [Eliquis] 2.5 mg PO BID #60 tab 04/27/21 Rx Allergies Allergy/AdvReac Type Severity Reaction Status Date / Time cortisone Allergy Anaphylaxis Verified 04/24/21 10:47 NSAIDS (Non-Steroidal Allergy Anaphylaxis Verified 04/24/21 10:47 Anti-Inflamma Physical Examination Right hip: Inspection: Negative for any open fractures, ecchymosis, erythema, nodules. Sensation: Sensation is equal, symmetric, intact throughout exam. Palpation: Mild pain to palpation of the right hip which is diffuse. Rest exam nontender to palpation Range of motion: Patient has full range of motion bilateral upper extremities. Patient's full range of motion left leg. Patient range of motion limited on right leg due to patient being in pain. Motor: Right leg -> dorsi and plantar flexion 5/5; weakness 3/5 in resisted hip flexion. Significant pain during external and internal rotation of right hip. Neurovascular: Refill under 3 seconds in bilateral hands Special tests: Negative Homans bilaterally; negative clonus bilaterally; negative Franchesca's bilaterally Results - Labs Labs: Abnormal Lab Results - Last 24 Hours (Table) 04/28/21 04/28/21 04/29/21 Range/Units 16:03 19:56 06:16 WBC (3.8-10.6) k/uL Neutrophils # (1.3-7.7) k/uL Carbon Dioxide (22-30) mmol/L BUN (9-20) mg/dL Creatinine (0.66-1.25) mg/dL Glucose (74-99) mg/dL POC Glucose (mg/dL) 147 H 162 H 135 H (75-99) mg/dL 04/29/21 04/29/21 04/29/21 Range/Units 07:51 07:51 11:35 WBC 11.2 H (3.8-10.6) k/uL Neutrophils # 8.8 H (1.3-7.7) k/uL Carbon Dioxide 20 L (22-30) mmol/L BUN 41 H (9-20) mg/dL Creatinine 1.84 H (0.66-1.25) mg/dL Glucose 146 H (74-99) mg/dL POC Glucose (mg/dL) 169 H (75-99) mg/dL H & H 04/24/21 04/25/21 04/28/21 Range/Units 10:03 11:01 11:29 Hgb 14.6 13.3 16.1 (13.0-17.5) gm/dL Hct 44.0 39.4 48.5 (39.0-53.0) % 04/29/21 Range/Units 07:51 Hgb 15.3 (13.0-17.5) gm/dL Hct 45.5 (39.0-53.0) % Coagulation 04/24/21 Range/Units 10:03 INR 1.0 (<1.2) Result Diagrams: 04/29/21 07:51 04/29/21 07:51 Assessment and Plan Assessment: 1. Severe osteoarthritis right hip 2. Multiple medical comorbidities Plan: 1. Severe osteoarthritis right hip - I did discuss findings x-ray of the right hip with my attending. At this time no emergent surgical intervention is needed orthopedically. There is no evident fracture right hip. Recommend patient to follow-up in outpatient setting for right hip. 2. Appreciate medical management 3. Pain management - stable at this time 4. GI prophylaxis 5. DVT ppx - plavix; eliquis 6. PT/OT - weightbearing as tolerated with walker for assistance. Time with Patient: Less than 30
--- NOTE | 2021-04-29 13:39 | P.PN ---
Subjective Progress Note Date: 04/29/21 HISTORY OF PRESENT ILLNESS: This is a 80-year-old male with a past medical history significant for coronary artery disease, hypertension, hyperlipidemia, diabetes mellitus, and carotid stenosis. Patient follows in the office with Dr. Escalante. We have been asked to see the patient in consultation for atrial fibrillation. Patient examined at the bedside. Patient initially presented to the hospital due to left upper extremity weakness. Patient underwent MRI revealing acute infarct of the right posterior parietal lobe cortex. Patient was evaluated by neurology and started on aspirin and Plavix. Patient was noted to have short episodes of atrial fibrillation yesterday. He is currently in sinus rhythm. He continues to have weakness of his left upper extremity. EKG reveals sinus mechanism with no signs of acute ischemia CT angio head and neck: 80-90% proximal right internal carotid artery stenosis. 70% proximal left internal carotid artery stenosis. Carotid Doppler: 70% stenosis of right internal carotid artery. Echocardiogram completed revealed ejection fraction 50-55%. Mild aortic regurgitation. Mild mitral regurgitation. Mild tricuspid regurgitation. Chest xray diminished inspiration. No new suspicious focal infiltrate. Laboratory data: WBC 7.0. Hemoglobin 13.8. Platelet count 182. Sodium 135. Potassium 3.5. BUN 28. Creatinine 1.53. Current home cardiac medications include Norvasc 5 mg daily, metoprolol tartrate 25 mg twice a day, and atorvastatin 80 mg daily Patient underwent cardiac catheterization in March 2016 with FFR of the LM which was 0.70. He also underwent cardiac catheterization in February 2016 revealing 50% stenosis of mid LM, 70% ostial RCA, and 70% mid RCA. 04/28/2021 Patient examined this afternoon. He is sitting up in the chair. He complains of significant right hip pain. He underwent an x-ray of his hip today and results are pending. He continues to report weakness of his left hand. He denies chest pain or pressure. Denies short of breath. Vital signs are stable. Telemetry reveals sinus mechanism 04/29/2021 Patient examined this morning at the bedside. He denies chest pain or pressure. He denies shortness of breath. He continues to report pain in his right lower extremity and states it is hard to move his leg today to due to the pain. He reports increased movement of his left hand. Telemetry reveals sinus mechanism. PHYSICAL EXAM: VITAL SIGNS: Reviewed. GENERAL: Well-developed in no acute distress. HEENT: Head is normocephalic. Pupils are equal, round. Sclerae anicteric. Mucous membranes of the mouth are moist. Neck supple. No JVD or thyromegaly LUNGS: Respirations even and unlabored. Lungs essentially clear to auscultation bilaterally. HEART: Regular rate and rhythm. S1 and S2 heard. ABDOMEN: Soft. Nondistended. Nontender. EXTREMITIES: Left upper extremity weakness. No clubbing or cyanosis. Peripheral pulses intact. No lower extremity edema NEUROLOGIC: Awake and alert. Oriented x 3. ASSESSMENT: Acute CVA New-onset paroxysmal atrial fibrillation, currently maintaining sinus mechanism Bilateral carotid stenosis, right 80-90% and left 70% Hypertension Hyperlipidemia Diabetes PLAN: Continue telemetry monitoring Continue Eliquis and Plavix Continue metoprolol 50 mg twice a day Patient is stable from a cardiac perspective Nurse practitioner note has been reviewed by physician. Signing provider agrees with the documented findings, assessment, and plan of care. Objective - Vital Signs Vital signs: Vital Signs Temp 98 F 04/29/21 12:00 Pulse 72 04/29/21 12:00 Resp 16 04/29/21 12:00 BP 127/77 04/29/21 12:00 Pulse Ox 98 04/29/21 12:00 Intake & Output 04/28/21 04/29/21 04/29/21 18:59 06:59 18:59 Intake Total 520 240 Output Total 400 250 200 Balance 120 -250 40 Weight 77 kg Intake: Oral 520 240 Output: Urine 400 250 200 Other: Voiding Method Urinal Urinal Urinal # Voids 1 # Bowel Movements 1 - Labs CBC & Chem 7: 04/29/21 07:51 04/29/21 07:51 Labs: Abnormal Lab Results - Last 24 Hours (Table) 04/28/21 04/28/21 04/29/21 Range/Units 16:03 19:56 06:16 WBC (3.8-10.6) k/uL Neutrophils # (1.3-7.7) k/uL Carbon Dioxide (22-30) mmol/L BUN (9-20) mg/dL Creatinine (0.66-1.25) mg/dL Glucose (74-99) mg/dL POC Glucose (mg/dL) 147 H 162 H 135 H (75-99) mg/dL 04/29/21 04/29/2104/29/21 Range/Units 07:51 07:51 11:35 WBC 11.2 H (3.8-10.6) k/uL Neutrophils # 8.8 H (1.3-7.7) k/uL Carbon Dioxide 20 L (22-30) mmol/L BUN 41 H (9-20) mg/dL Creatinine 1.84 H (0.66-1.25) mg/dL Glucose 146 H (74-99) mg/dL POC Glucose (mg/dL) 169 H (75-99) mg/dL
--- NOTE | 2021-04-29 16:16 | P.PN ---
Subjective Progress Note Date: 04/28/21 Principal diagnosis: Acute ischemic stroke New onset atrial fibrillation with RVR Symptomatic severe proximal right ICA stenosis 80-year-old gentleman with medical history of diabetes mellitus (for at least 10-12 years), hypertension, hyperlipidemia, who presented to the emergency department on 04/24/2021 for left arm weakness and numbness that started two days ago. Patient presented at around 9:43 AM today to our ED. He is accompanied by his daughter (Melissa) who is at bedside. Due to that about 2 days ago he was doing gardening and all of a sudden he noted his a left upper extremity mostly to hand the forearm was weak as well as felt numbness. He denies any other associated symptoms with that that. Denies any difficulty swallowing, difficulty getting his words out, denied any weakness in the legs. He stated that he has a mild headache is chronic and that's in the back of the head and stated it was mild and denies any radiation denied any photophobia photophobia and nausea vomiting and he said that he has this headache on and off and that's been going on for a while but denies any headache currently. He denies as seeking any medical attention the with the weakness of the left upper extremity since he thought is given get better. He denies any history of stroke or TIA. CT of the brain is reported as cortical and subcortical hypodensity at the right frontal parietal junction, new from 10/14/2017. No significant sulcal eff acement or midline shift. No acute intracranial hemorrhage. Correlate for possible subacute ischemia. Mild generalized atrophy and moderate burden of chronic small vessel ischemic disease. Moderate chronic ethmoid and maxillary sinus disease. 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 There is reconstitution of the nondominant left vertebral artery at the V3 and V4 segment. The dissection flap appears slightly thick suggesting a more chronic finding. Moderate aphthous carotid narrowing at the origin of the dominant right vertebral artery with otherwise remained patent. Severe 80-90% proximal right ICA stenosis sparing a length of 1 cm. Moderate after sclerotic change at the left bifurcation with a moderate, just under 70% proximal left ICA stenosis. It 1.4 cm left thyroid the lobe nodule can be further evaluated with a nonemergent dedicated thyroid ultrasound. CT angiography of the head is reported as mild segmental aphthous carotid narrowing throughout the bilateral carotid siphons. Reconstruction of the V3 and V4 segment of the nondominant left vertebral artery. No large vessel intracranial arterial occlusion. Significant stenosis or aneurysm changes seen. 04/26/2021 Patient is seen and evaluated in room at bedside; denies any complaint of chest pain or shortness of breath; patient had episode of elevated heart rate; EKG was done which revealed atrial fibrillation Vital signs are reviewed, currently temperature of 98.2, pulse 71, respiration 18 and blood pressure 142/65 Patient has been restarted on home dose of metoprolol which resulted in improved heart rate; metoprolol was increased to 50 mg twice a day; no anticoagulation at this time due to acute CVA; cardiology recommending to start patient on anticoagulation possibly next 24 hours to avoid risk of hemorrhagic conversion; cardiology recommending to continue with current dose of Plavix and discontinue aspirin along with added anticoagulation in next 24 hours; patient will remain on Lipitor 80 mg daily for secondary stroke prophylaxis Vascular surgery on board for right ICA symptomatic stenosis with plans for surg pily within 1-2 weeks 04/27/2021 Patient is currently resting in the bed comfortably. Patient had episode of atrial fibrillation yesterday currently maintained in sinus rhythm. Patient was admitted to the hospital due to left upper extremities weakness and MRI showed acute CVA. Denied any complaints of chest pain or shortness of breath. Patient has been afebrile. Patient was started on anticoagulation the form of Eliquis 2.5 mg twice a day and continue with Plavix. Aspirin has been discontinued. Heart rate is controlled with metoprolol 50 mg twice daily. Cardiology and neurology is on board. Vascular surgery is following for right ICA symptomatic stenosis. Planning for surgery in next 1-2 weeks. 04/28/2021 Patient is complaining of severe right hip pain today. Hip x-ray showed severe osteoarthritis and possible osteonecrosis. Orthopedic surgery was consulted for evaluation. Continue with pain management with Tylenol and [place] intermittently. No complaints of fever or chills. Patient is tolerating oral diet. Left-sided upper extremity weakness is improving. Patient is being continued on Eliquis and Plavix. Anticoagulation for paroxysmal atrial fibrillation. Cardiology is following. Current medications reviewed. Objective - Vital Signs Vital signs: Vital Signs Temp 97.9 F 04/28/21 20:15 Pulse 89 04/28/21 20:15 Resp 20 04/28/21 20:15 BP 152/79 04/28/21 20:15 Pulse Ox 99 04/28/21 20:15 Intake & Output 04/28/21 04/28/21 04/29/21 06:59 18:59 06:59 Intake Total 520 Output Total 1125 400 Balance -1125 120 Weight 77.5 kg Intake: Oral 520 Output: Urine 1125 400 Other: Voiding Method Urinal Urinal Urinal # Voids 1 # Bowel Movements 1 - Exam - Exam - Constitutional General appearance: Present: average body habitus, cooperative, no acute distress - EENT Eyes: Present: anicteric sclerae, EOMI, PERRLA, normal appearance ENT: Present: hearing grossly normal, normal oropharynx Ears: bilateral: normal - Neck Neck: Present: normal ROM. Absent: lymphadenopathy, rigidity, thyromegaly Carotids: negative: bruit present Thyroid: bilateral: normal size, negative: enlarged, nodule - Respiratory Respiratory: bilateral: CTA, negative: rales, rhonchi, wheezing, bibasilar diminished sounds. - Cardiovascular Rhythm: regular Heart sounds: normal: S1, S2 Abnormal Heart Sounds: Absent: systolic murmur, diastolic murmur - Gastrointestinal General gastrointestinal: Present: normal bowel sounds, soft. Absent: distended, organomegaly, tenderness - Genitourinary Genitourinary Comment(s): deferred - Integumentary Integumentary: Present: normal turgor. Absent: jaundiced, rash, ulcer - Neurologic Neurologic: Present: CNII-XII intact. Patient does have left upper extremity weakness. - Musculoskeletal Musculoskeletal: Present: gait normal, strength equal bilaterally - Psychiatric Psychiatric: Present: A&O x's 3, appropriate affect, intact judgment & insight - Labs CBC & Chem 7: 04/29/21 07:51 04/29/21 07:51 Labs: Abnormal Lab Results - Last 24 Hours (Table) 04/28/21 04/28/21 04/28/21 Range/Units 05:58 11:29 11:29 WBC 12.3 H (3.8-10.6) k/uL Neutrophils # 10.9 H (1.3-7.7) k/uL Lymphocytes # 0.6 L (1.0-4.8) k/uL Carbon Dioxide 19 L (22-30) mmol/L BUN 42 H (9-20) mg/dL Creatinine 1.67 H (0.66-1.25) mg/dL Glucose 207 H (74-99) mg/dL POC Glucose (mg/dL) 134 H (75-99) mg/dL 04/28/21 04/28/21 04/28/21 Range/Units 12:00 16:03 19:56 WBC (3.8-10.6) k/uL Neutrophils # (1.3-7.7) k/uL Lymphocytes # (1.0-4.8) k/uL Carbon Dioxide (22-30) mmol/L BUN (9-20) mg/dL Creatinine (0.66-1.25) mg/dL Glucose (74-99) mg/dL POC Glucose (mg/dL) 195 H 147 H 162 H (75-99) mg/dL Assessment and Plan Assessment: 1. New onset atrial fibrillation. Heart rate is controlled and patient converted back to sinus rhythm. Started on anticoagulation with Eliquis and also being continued on metoprolol 50 mg twice daily next and heart rate is controlled. Cardiology is on board. 1. 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 Started on Eliquis due to new onset atrial fibrillation. 3 right-sided pain due to severe osteoarthrosis. Continue pain management with Tylenol and [place] intermittently. 2. Severe right internal carotid stenosis - Moderate stenosis of left ICA; vascular surgery is is following and is planning for surgery in the next 1-2 weeks. 3. Acute renal injury; elevated BUN/creatinine of 37/1.87; patient on IV fluids and monitor strict MARCO A's, daily weights, renal function and electrolytes; avoid nephrotoxic agents 4. Diabetes mellitus; monitor Accu-Cheks every 6 hours as with insulin sliding scale 6. Hypertension; hold antihypertensive therapy for permissive hypertension; treat if diastolic blood pressures greater than 220 and diastolic blood pressures greater than 110 7. Hyperlipidemia; Lipitor 80 mg by mouth daily at bedtime DT prophylaxis; SCDs CODE STATUS; full code
[2021-04-29 16:45] LABS: Glucose,Whole Blood 128 mg/dL (75-99)
[2021-04-29 19:42] LABS: Glucose,Whole Blood 195 mg/dL (75-99)
[2021-04-29] MEDS: HYDROcodone/APAP 5-325MG 1 EACH TAB PO PRN (21:01)
[2021-04-29] MEDS: ATORVASTATIN 80 MG TAB PO SCH (21:02)
[2021-04-30] MEDS: HYDROcodone/APAP 5-325MG 1 EACH TAB PO PRN ×2 (04:15→20:50)
[2021-04-30 06:05] LABS: Glucose,Whole Blood 145 mg/dL (75-99)
[2021-04-30] MEDS: INSULIN ASPART (NovoLOG) 100 UNIT/ML VIAL SQ SCH ×4 (06:35→20:49)
[2021-04-30 08:25] VITALS: TEMP 98.1
[2021-04-30] MEDS: TAMSULOSIN 0.4 MG CAP.ER.24H PO SCH (09:00)
[2021-04-30] MEDS: APIXABAN 2.5 MG TABLET PO SCH ×2 (09:00→20:49)
[2021-04-30] MEDS: LINAGLIPTIN 5 MG TABLET PO SCH (09:00)
[2021-04-30] MEDS: METOPROLOL TARTRATE 50 MG TAB PO SCH ×2 (09:00→20:49)
[2021-04-30] MEDS: CLOPIDOGREL 75 MG TAB PO SCH (09:00)
--- NOTE | 2021-04-30 12:00 | P.PN ---
Subjective Progress Note Date: 04/30/21 Principal diagnosis: right hip pain Patient seen at bedside this morning. Patient states nothing much has changed since yesterday. He is still having right hip pain during ambulation. Patient denies, chest pain. fever, SOB, N/V, loss of bowel/bladder control. Objective - Vital Signs Vital signs: Vital Signs Temp 98.1 F 04/30/21 08:00 Pulse 91 04/30/21 08:00 Resp 18 04/30/21 08:00 BP 128/64 04/30/21 08:00 Pulse Ox 96 04/30/21 08:00 Intake & Output 04/29/21 04/30/21 04/30/21 18:59 06:59 18:59 Intake Total 480 237 240 Output Total 700 475 Balance -220 -238 240 Weight 76.5 kg Intake: Oral 480 237 240 Output: Urine 700 475 Other: Voiding Method Urinal Urinal Urinal - Exam Right hip: Inspection: Negative for any open fractures, ecchymosis, erythema, nodules. Sensation: Sensation is equal, symmetric, intact throughout exam. Palpation: Mild pain to palpation of the right hip which is diffuse. Rest exam nontender to palpation Range of motion: Patient has full range of motion bilateral upper extremities. Patient's full range of motion left leg. Patient range of motion limited on right leg due to patient being in pain. Motor: Right leg -> dorsi and plantar flexion 5/5; weakness 3/5 in resisted hip flexion. Significant pain during external and internal rotation of right hip. Neurovascular: Refill under 3 seconds in bilateral hands Special tests: Negative Homans bilaterally; negative clonus bilaterally; negative Franchesca's bilaterally - Labs CBC & Chem 7: 04/29/21 07:51 04/29/21 07:51 Labs: Abnormal Lab Results - Last 24 Hours (Table) 04/29/21 04/29/21 04/30/21 Range/Units 16:43 19:35 05:58 POC Glucose (mg/dL) 128 H 195 H 145 H (75-99) mg/dL Assessment and Plan Assessment: 1. Severe osteoarthritis right hip 2. Multiple medical comorbidities Plan: 1. Severe osteoarthritis right hip - I did discuss findings x-ray of the right hip with my attending. At this time no emergent surgical intervention is needed orthopedically. There is no evident fracture right hip. Recommend patient to follow-up in outpatient setting for right hip in 2 weeks. Patient is orthopedically stable for discharge. Please do not hesitate to contact us for any further questions. 2. Appreciate medical management 3. Pain management - stable at this time 4. GI prophylaxis 5. DVT ppx - plavix; eliquis 6. PT/OT - weightbearing as tolerated with walker for assistance. Time with Patient: Less than 30
[2021-04-30 12:09] LABS: Glucose,Whole Blood 172 mg/dL (75-99)
--- NOTE | 2021-04-30 12:46 | P.PN ---
Subjective Progress Note Date: 04/30/21 HISTORY OF PRESENT ILLNESS: This is a 80-year-old male with a past medical history significant for coronary artery disease, hypertension, hyperlipidemia, diabetes mellitus, and carotid stenosis. Patient follows in the office with Dr. Escalante. We have been asked to see the patient in consultation for atrial fibrillation. Patient examined at the bedside. Patient initially presented to the hospital due to left upper extremity weakness. Patient underwent MRI revealing acute infarct of the right posterior parietal lobe cortex. Patient was evaluated by neurology and started on aspirin and Plavix. Patient was noted to have short episodes of atrial fibrillation yesterday. He is currently in sinus rhythm. He continues to have weakness of his left upper extremity. EKG reveals sinus mechanism with no signs of acute ischemia CT angio head and neck: 80-90% proximal right internal carotid artery stenosis. 70% proximal left internal carotid artery stenosis. Carotid Doppler: 70% stenosis of right internal carotid artery. Echocardiogram completed revealed ejection fraction 50-55%. Mild aortic regurgitation. Mild mitral regurgitation. Mild tricuspid regurgitation. Chest xray diminished inspiration. No new suspicious focal infiltrate. Laboratory data: WBC 7.0. Hemoglobin 13.8. Platelet count 182. Sodium 135. Potassium 3.5. BUN 28. Creatinine 1.53. Current home cardiac medications include Norvasc 5 mg daily, metoprolol tartrate 25 mg twice a day, and atorvastatin 80 mg daily Patient underwent cardiac catheterization in March 2016 with FFR of the LM which was 0.70. He also underwent cardiac catheterization in February 2016 revealing 50% stenosis of mid LM, 70% ostial RCA, and 70% mid RCA. 04/28/2021 Patient examined this afternoon. He is sitting up in the chair. He complains of significant right hip pain. He underwent an x-ray of his hip today and results are pending. He continues to report weakness of his left hand. He denies chest pain or pressure. Denies short of breath. Vital signs are stable. Telemetry reveals sinus mechanism 04/29/2021 Patient examined this morning at the bedside. He denies chest pain or pressure. He denies shortness of breath. He continues to report pain in his right lower extremity and states it is hard to move his leg today to due to the pain. He reports increased movement of his left hand. Telemetry reveals sinus mechanism. 04/30/2021 Patient examined this morning at the bedside. He denies chest pain or pressure. He denies shortness of breath. He reports improvement in the pain in his right leg. Telemetry reveals sinus mechanism. PHYSICAL EXAM: VITAL SIGNS: Reviewed. GENERAL: Well-developed in no acute distress. HEENT: Head is normocephalic. Pupils are equal, round. Sclerae anicteric. Mucous membranes of the mouth are moist. Neck supple. No JVD or thyromegaly LUNGS: Respirations even and unlabored. Lungs essentially clear to auscultation bilaterally. HEART: Regular rate and rhythm. S1 and S2 heard. EXTREMITIES: Left upper extremity weakness. No clubbing or cyanosis. Peripheral pulses intact. No lower extremity edema ASSESSMENT: Acute CVA New-onset paroxysmal atrial fibrillation, currently maintaining sinus mechanism Bilateral carotid stenosis, right 80-90% and left 70% Hypertension Hyperlipidemia Diabetes PLAN: Continue telemetry monitoring Continue Eliquis and Plavix Continue metoprolol 50 mg twice a day Patient is stable from a cardiac perspective Nurse practitioner note has been reviewed by physician. Signing provider agrees with the documented findings, assessment, and plan of care. Objective - Vital Signs Vital signs: Vital Signs Temp 98.1 F 04/30/21 08:00 Pulse 91 04/30/21 08:00 Resp 18 04/30/21 08:00 BP 128/64 04/30/21 08:00 Pulse Ox 96 04/30/21 08:00 Intake & Output 04/29/21 04/30/21 04/30/21 18:59 06:59 18:59 Intake Total 480 237 240 Output Total 700 475 Balance -220 -238 240 Weight 76.5 kg Intake: Oral 480 237 240 Output: Urine 700 475 Other: Voiding Method Urinal Urinal Urinal - Labs CBC & Chem 7: 04/29/21 07:51 04/29/21 07:51 Labs: Abnormal Lab Results - Last 24 Hours (Table) 04/29/21 04/29/21 04/30/21 Range/Units 16:43 19:35 05:58 POC Glucose (mg/dL) 128 H 195 H 145 H (75-99) mg/dL
[2021-04-30 14:45] VITALS: BMI 27.2
[2021-04-30 16:49] LABS: Glucose,Whole Blood 160 mg/dL (75-99)
--- NOTE | 2021-04-30 17:28 | CDI ---
Documentation Clarification Form Date: 04/30/2021 05:05:05 PM From: Nathalia aTylor RN, CCDS Admit Date: 04/24/2021 11:28:00 AM Patient Name: Rashid Fletcher Visit Number: [id number] Discharge Date: ATTENTION: The Clinical Documentation Specialists (CDI) and [facility] Coding Staff appreciate your assistance in clarifying documentation. Please respond to the clarification below the line at the bottom and electronically sign. The CDI & [facility] Coding staff will review the response and follow-up if needed. Please note: Queries are made part of the Legal Health Record. If you have any questions, please contact the author of this message via ITS. Dr. Delmi Daley Ischemic CVA is documented 04/29/2021. Additional clarification regarding the ischemic CVA is requested. 04/27 Vascular surgery consult: Symptomatic right ICA stenosis.90% Left carotid stenosis 70 %. History/risk factors: Diabetes Mellitus, Hypertension, Hyperlipidemia, CA Clinical Indicators 80-year-old male present to ED on 04/24 with complaints of left arm numbness and weakness. 04/24 Vital signs: 143/74 79 18 97.4 04/24 CT head: cortical, subcortical hypodensity in the right frontal parietal region. Severe proximal Right ICA stenosis (80-90%). 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
[2021-04-30 20:20] LABS: Glucose,Whole Blood 157 mg/dL (75-99)
[2021-04-30] MEDS: ATORVASTATIN 80 MG TAB PO SCH (20:49)
[2021-05-01 06:12] LABS: Glucose,Whole Blood 140 mg/dL (75-99)
[2021-05-01] MEDS: INSULIN ASPART (NovoLOG) 100 UNIT/ML VIAL SQ SCH (06:14)
[2021-05-01] MEDS: CLOPIDOGREL 75 MG TAB PO SCH (09:34)
[2021-05-01] MEDS: LINAGLIPTIN 5 MG TABLET PO SCH (09:34)
[2021-05-01] MEDS: METOPROLOL TARTRATE 50 MG TAB PO SCH (09:34)
[2021-05-01] MEDS: APIXABAN 2.5 MG TABLET PO SCH (09:34)
[2021-05-01] MEDS: TAMSULOSIN 0.4 MG CAP.ER.24H PO SCH (09:34)
[2021-05-01 11:50] LABS: Glucose,Whole Blood 142 mg/dL (75-99)
--- NOTE | 2021-05-01 12:47 | P.PN ---
Subjective Progress Note Date: 05/01/21 HISTORY OF PRESENT ILLNESS: This is a 80-year-old male with a past medical history significant for coronary artery disease, hypertension, hyperlipidemia, diabetes mellitus, and carotid stenosis. Patient follows in the office with Dr. Escalante. We have been asked to see the patient in consultation for atrial fibrillation. Patient examined at the bedside. Patient initially presented to the hospital due to left upper extremity weakness. Patient underwent MRI revealing acute infarct of the right posterior parietal lobe cortex. Patient was evaluated by neurology and started on aspirin and Plavix. Patient was noted to have short episodes of atrial fibrillation yesterday. He is currently in sinus rhythm. He continues to have weakness of his left upper extremity. EKG reveals sinus mechanism with no signs of acute ischemia CT angio head and neck: 80-90% proximal right internal carotid artery stenosis. 70% proximal left internal carotid artery stenosis. Carotid Doppler: 70% stenosis of right internal carotid artery. Echocardiogram completed revealed ejection fraction 50-55%. Mild aortic regurgitation. Mild mitral regurgitation. Mild tricuspid regurgitation. Chest xray diminished inspiration. No new suspicious focal infiltrate. Laboratory data: WBC 7.0. Hemoglobin 13.8. Platelet count 182. Sodium 135. Potassium 3.5. BUN 28. Creatinine 1.53. Current home cardiac medications include Norvasc 5 mg daily, metoprolol tartrate 25 mg twice a day, and atorvastatin 80 mg daily Patient underwent cardiac catheterization in March 2016 with FFR of the LM which was 0.70. He also underwent cardiac catheterization in February 2016 revealing 50% stenosis of mid LM, 70% ostial RCA, and 70% mid RCA. 04/28/2021 Patient examined this afternoon. He is sitting up in the chair. He complains of significant right hip pain. He underwent an x-ray of his hip today and results are pending. He continues to report weakness of his left hand. He denies chest pain or pressure. Denies short of breath. Vital signs are stable. Telemetry reveals sinus mechanism 04/29/2021 Patient examined this morning at the bedside. He denies chest pain or pressure. He denies shortness of breath. He continues to report pain in his right lower extremity and states it is hard to move his leg today to due to the pain. He reports increased movement of his left hand. Telemetry reveals sinus mechanism. 04/30/2021 Patient examined this morning at the bedside. He denies chest pain or pressure. He denies shortness of breath. He reports improvement in the pain in his right leg. Telemetry reveals sinus mechanism. 05/01/2021 Patient examined this morning at the bedside. He denies chest pain or pressure. He denies shortness of breath. Telemetry reveals sinus mechanism. PHYSICAL EXAM: VITAL SIGNS: Reviewed. GENERAL: Well-developed in no acute distress. HEENT: Head is normocephalic. Pupils are equal, round. Sclerae anicteric. Mucous membranes of the mouth are moist. Neck supple. No JVD or thyromegaly LUNGS: Respirations even and unlabored. Lungs essentially clear to auscultation bilaterally. HEART: Regular rate and rhythm. S1 and S2 heard. EXTREMITIES: Left upper extremity weakness. No clubbing or cyanosis. Peripheral pulses intact. No lower extremity edema ASSESSMENT: Acute CVA New-onset paroxysmal atrial fibrillation, currently maintaining sinus mechanism Bilateral carotid stenosis, right 80-90% and left 70% Hypertension Hyperlipidemia Diabetes PLAN: Continue telemetry monitoring Continue Eliquis and Plavix Continue metoprolol 50 mg twice a day Patient is stable from a cardiac perspective We will sign off. Please reconsult if needed. Nurse practitioner note has been reviewed by physician. Signing provider agrees with the documented findings, assessment, and plan of care. Objective - Vital Signs Vital signs: Vital Signs Temp 98.1 F 04/30/21 16:00 Pulse 92 05/01/21 08:00 Resp 18 05/01/21 08:00 BP 142/69 05/01/21 08:00 Pulse Ox 95 05/01/21 08:00 Intake & Output 04/30/21 05/01/21 05/01/21 18:59 06:59 18:59 Intake Total 600 240 Output Total 550 650 Balance 600 -550 -410 Weight 76.5 kg 76 kg Intake: Oral 600 240 Output: Urine 550 650 Other: Voiding Method Urinal Urinal # Voids 1 1 # Bowel Movements 1 - Labs CBC & Chem 7: 04/29/21 07:51 04/29/21 07:51 Labs: Abnormal Lab Results - Last 24 Hours (Table) 04/30/21 04/30/21 05/01/21 Range/Units 16:48 19:58 05:58 POC Glucose (mg/dL) 160 H 157 H 140 H (75-99) mg/dL 05/01/21 Range/Units 11:48 POC Glucose (mg/dL) 142 H (75-99) mg/dL
--- NOTE | 2021-05-01 13:57 | P.DS ---
Providers Date of admission: 04/24/21 11:28 Expected date of discharge: 05/01/21 Attending physician: Ju De La Garza MD Consults: 04/24/21 11:26 Consult Physician Urgent Consulting Provider: Jay Roa Consult Reason/Comments: CVA, carotid dissection Do you want consulting provider notified?: Yes 04/24/21 12:19 Consult Physician Stat Consulting Provider: Checo Bales Consult Reason/Comments: carotid stenosis and dissection Do you want consulting provider notified?: Yes 04/29/21 11:16 Consult Physician Routine Consulting Provider: Robin Van Consult Reason/Comments: Right hip pain Do you want consulting provider notified?: Yes Primary care physician: Jessica Griffin Hospital Course: Hospital Course: Discharge diagnosis. 1. New onset atrial fibrillation. Heart rate is controlled and patient converted back to sinus rhythm. Started on anticoagulation with Eliquis and also being continued on metoprolol 50 mg twice daily next and heart rate is controlled. Patient was seen by cardiology.. 1. 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 Started on Eliquis due to new onset atrial fibrillation. 3 right-sided pain due to severe osteoarthrosis. Continue pain management with Tylenol and Strang intermittently. Orthopedic surgery recommends no intervention at this time. 2. Severe right internal carotid stenosis - Moderate stenosis of left ICA; vascular surgery is is following and is planning for surgery in the next 1-2 weeks. 3. Acute renal injury; elevated BUN/creatinine of 37/1.87; patient on IV fluids and monitor strict MARCO A's, daily weights, renal function and electrolytes; avoid nephrotoxic agents 4. Diabetes mellitus; monitor Accu-Cheks every 6 hours as with insulin sliding scale 6. Hypertension; hold antihypertensive therapy for permissive hypertension; treat if diastolic blood pressures greater than 220 and diastolic blood pressures greater than 110 7. Hyperlipidemia; Lipitor 80 mg by mouth daily at bedtime Hospital course 80-year-old gentleman with medical history of diabetes mellitus (for at least 10-12 years), hypertension, hyperlipidemia, who presented to the emergency department on 04/24/2021 for left arm weakness and numbness that started two days ago. Patient presented at around 9:43 AM today to our ED. He is accompanied by his daughter (Melissa) who is at bedside. Due to that about 2 days ago he was doing gardening and all of a sudden he noted his a left upper extremity mostly to hand the forearm was weak as well as felt numbness. He denies any other associated symptoms with that that. Denies any difficulty swallowing, difficulty getting his words out, denied any weakness in the legs. He stated that he has a mild headache is chronic and that's in the back of the head and stated it was mild and denies any radiation denied any photophobia photophobia and nausea vomiting and he said that he has this headache on and off and that's been going on for a while but denies any headache currently. He denies as seeking any medical attention the with the weakness of the left upper extremity since he thought is given get better. He denies any history of stroke or TIA. CT of the brain is reported as cortical and subcortical hypodensity at the right frontal parietal junction, new from 10/14/2017. No significant sulcal effacement or midline shift. No acute intracranial hemorrhage. Correlate for possible subacute ischemia. Mild generalized atrophy and moderate burden of chronic small vessel ischemic disease. Moderate chronic ethmoid and maxillary sinus disease. 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 There is reconstitution of the nondominant left vertebral artery at the V3 and V4 segment. The dissection flap appears slightly thick suggesting a more chronic finding. Moderate aphthous carotid narrowing at the origin of the dominant right vertebral artery with otherwise remained patent. Severe 80-90% proximal right ICA stenosis sparing a length of 1 cm. Moderate after sclerotic change at the left bifurcation with a moderate, just under 70% proximal left ICA stenosis. It 1.4 cm left thyroid the lobe nodule can be further evaluated with a nonemergent dedicated thyroid ultrasound. CT angiography of the head is reported as mild segmental aphthous carotid narrowing throughout the bilateral carotid siphons. Reconstruction of the V3 and V4 segment of the nondominant left vertebral artery. No large vessel intracranial arterial occlusion. Significant stenosis or aneurysm changes seen. 04/26/2021 Patient is seen and evaluated in room at bedside; denies any complaint of chest pain or shortness of breath; patient had episode of elevated heart rate; EKG was done which revealed atrial fibrillation Vital signs are reviewed, currently temperature of 98.2, pulse 71, respiration 18 and blood pressure 142/65 Patient has been restarted on home dose of metoprolol which resulted in improved heart rate; metoprolol was increased to 50 mg twice a day; no anticoagulation at this time due to acute CVA; cardiology recommending to start patient on anticoagulation possibly next 24 hours to avoid risk of hemorrhagic conversion; cardiology recommending to continue with current dose of Plavix and discontinue aspirin along with added anticoagulation in next 24 hours; patient will remain on Lipitor 80 mg daily for secondary stroke prophylaxis Vascular surgery on board for right ICA symptomatic stenosis with plans for surgery within 1-2 weeks 04/27/2021 Patient is currently resting in the bed comfortably. Patient had episode of atrial fibrillation yesterday currently maintained in sinus rhythm. Patient was admitted to the hospital due to left upper extremities weakness and MRI showed acute CVA. Denied any complaints of chest pain or shortness of breath. Patient has been afebrile. Patient was started on anticoagulation the form of Eliquis 2.5 mg twice a day and continue with Plavix. Aspirin has been discontinued. Heart rate is controlled with metoprolol 50 mg twice daily. Cardiology and neurology is on board. Vascular surgery is following for right ICA symptomatic stenosis. Planning for surgery in next 1-2 weeks. 04/28/2021 Patient is complaining of severe right hip pain today. Hip x-ray showed severe osteoarthritis and possible osteonecrosis. Orthopedic surgery was consulted for evaluation. Continue with pain management with Tylenol and Strang intermittently. No complaints of fever or chills. Patient is tolerating oral diet. Left-sided upper extremity weakness is improving. Patient is being continued on Eliquis and Plavix. Anticoagulation for paroxysmal atrial fibrillation. Cardiology is following. 04/29/2021 Patient is currently resting in the chair comfortably. Right hip pain is better controlled. Orthopedic surgery requires no intervention at this time. Patient will be current on Plavix and Eliquis. Anticoagulation due to new onset paroxysmal atrial fibrillation. Continue with Plavix for stroke prophylaxis. Patient will require physical therapy and will be discharged to rehab. 05/01/21 Patient is currently sitting in the chair comfortably. No complaints of chest pain or shortness of breath. Currently maintaining sinus rhythm. Right hip pain is better with medications Strang. [facility] PHYSICAL EXAMINATION: Patient is lying in the bed comfortably, no acute distress, awake alert and oriented.. HEENT: Normocephalic. Neck is supple. Pupils reactive. Nostrils clear. Oral cavity is moist. Neck reveals no JVD, carotid bruits, or thyromegaly. CHEST EXAMINATION: Trachea is central. Symmetrical expansion. Lung kumar clear to auscultation and percussion. CARDIAC: Normal S1, S2 with no gallops. No murmurs ABDOMEN: Soft. Bowel sounds normal. No organomegaly. No abdominal bruits. Extremities: reveal no edema. No clubbing or cyanosis Neurologically awake, alert, oriented x3 with well-coordinated movements. Patient does have left upper the weakness is muscle strength 3-4 out of 5. Skin: No rash or skin lesions. Psychiatric: Coperative. Nonsuicidal Musculoskeletal: No joint swelling or deformity. Right hip decreased range of motion.. Vital Signs 05/01/21 08:00 Pulse Rate [ 92 Pulse Oximetery ] Respiratory 18 Rate Blood Pressure 142/69 [Left Arm] O2 Sat by Pulse 95 Oximetry time take >35 min Patient Condition at Discharge: Stable Plan - Discharge Summary Discharge Rx Participant: Yes New Discharge Prescriptions: New Apixaban [Eliquis] 2.5 mg PO BID #60 tab Metoprolol Tartrate [Lopressor] 50 mg PO BID #60 tab HYDROcodone/APAP 5-325MG [Strang 5-325] 1 each PO Q6HR PRN 3 Days #12 tab PRN Reason: Pain Clopidogrel [Plavix] 75 mg PO DAILY #30 tab Continue sitaGLIPtin [Januvia] 50 mg PO DAILY Tamsulosin [Flomax] 0.4 mg PO DAILY Atorvastatin [Lipitor] 80 mg PO DAILY Discontinued Metoprolol Tartrate [Lopressor] 25 mg PO BID amLODIPine [Norvasc] 5 mg PO DAILY Discharge Medication List sitaGLIPtin [Januvia] 50 mg PO DAILY 12/28/17 [History] Atorvastatin [Lipitor] 80 mg PO DAILY 04/24/21 [History] Tamsulosin [Flomax] 0.4 mg PO DAILY 04/24/21 [History] Apixaban [Eliquis] 2.5 mg PO BID #60 tab 04/27/21 [Rx] Clopidogrel [Plavix] 75 mg PO DAILY #30 tab 04/29/21 [Rx] HYDROcodone/APAP 5-325MG [Strang 5-325] 1 each PO Q6HR PRN 3 Days #12 tab 04/29/21 [Rx] Metoprolol Tartrate [Lopressor] 50 mg PO BID #60 tab 04/29/21 [Rx] Follow up Appointment(s)/Referral(s): Maicol Escalante MD [STAFF PHYSICIAN] - 1 Week Checo Bales DO [STAFF PHYSICIAN] - 1 Week Jessica Griffin DO [Primary Care Provider] - 1-2 days [facility], [NON-STAFF] - Hugo Thomas DO [Doctor of Osteopathic Medicine] - 1 Week Activity/Diet/Wound Care/Special Instructions: Patient is in his insurance gap and copay for Eliquis is $121.25, 1st free month coupon will be applied. Discharge Disposition: HOME WITH HOME HEALTH SERVICES
[2021-05-01 15:19] VITALS: BP 127/74; PULSE 78; RESP 20
[2021-05-01 17:20] LABS: Glucose,Whole Blood 150 mg/dL (75-99)
== END 2021-05-01 18:16 | DRG 64 ==
LOC: EC 09:43 → 3SCARD 11:28
PROVIDERS: ADMIT Internal Medicine; ATTEND Internal Medicine
DX: I63.40 Cerebral infarction due to embolism of unspecified cerebral artery (principal); I77.71 Dissection of carotid artery; M87.9 Osteonecrosis, unspecified; N17.9 Acute kidney failure, unspecified; E11.9 Type 2 diabetes mellitus without complications; E78.5 Hyperlipidemia, unspecified; I10 Essential (primary) hypertension; I25.10 Atherosclerotic heart disease of native coronary artery without angina pectoris; I48.0 Paroxysmal atrial fibrillation; I65.23 Occlusion and stenosis of bilateral carotid arteries; J32.0 Chronic maxillary sinusitis; M13.0 Polyarthritis, unspecified; M16.11 Unilateral primary osteoarthritis, right hip; W19.XXXA Unspecified fall, initial encounter; Z79.01 Long term (current) use of anticoagulants; Z79.02 Long term (current) use of antithrombotics/antiplatelets; Z79.82 Long term (current) use of aspirin; Z79.84 Long term (current) use of oral hypoglycemic drugs; Z79.899 Other long term (current) drug therapy; Z85.46 Personal history of malignant neoplasm of prostate; Z87.442 Personal history of urinary calculi; Z96.642 Presence of left artificial hip joint; K21.9 Gastro-esophageal reflux disease without esophagitis
CPT/HCPCS: 36415; 70450; 70496; 70498; 70551; 71046; 73502; 80048; 80053; 80061; 83036; 84443; 84484; 85025; 85610; 85730; 93005; 93306; 93880; 94760; 99285